=== PATIENT | female | born 1970 ===

== ENCOUNTER 2022-06-29 08:35 | Outpatient (REF) | payer OTHER, SELFPAY ==
[2022-06-29 11:12] LABS: MANUAL DIFF FLAG NO
[2022-06-29 11:31] LABS: Basophils Percent Auto 0.5 % (0-2); Eosinophils Absolute Auto 0.1 X10*3/uL (0.0-0.4); Eosinophils Percent Auto 2.4 % (0-4); Hematocrit 42.7 % (37.0-47.0); Hemoglobin 14.1 g/dl (12.0-16.0); Imm Gran Abs Auto 0.01 X10*3/uL (0.00-0.03); Imm Gran Pct Auto 0.2 % (0.0-0.4); Lymphocytes Absolute Auto 2.4 X10*3/uL (1.2-4.9); Lymphocytes Percent Auto 43.6 % (20-40); Mean Corpuscular Hemoglobin 29.9 pg (27.0-33.0); Mean Corpuscular Volume 90.5 fL (80.0-98.0); Mean Platelet Volume 8.9 fL (9.4-12.3); Monocytes Absolute Auto 0.4 X10*3/uL (0.1-1.2); Monocytes Percent Auto 7.1 % (2-11); Neutrophils Absolute Auto 2.5 x10*3/uL (2.0-8.3); Neutrophils Percent Auto 46.2 % (45-73); Platelet Count 335 X10*3/uL (160-400); Red Blood Count 4.72 X10*6/uL (4.20-5.50); White Blood Count 5.5 X10*3/uL (4.8-10.8)
[2022-06-29 12:45] LABS: Alanine Aminotransferase 19 U/L (0-31); Albumin Level 4.6 g/dL (3.5-5.0); Alkaline Phosphatase 72 U/L (39-117); Anion Gap 10 (12-20); Aspartate Amino Transferase 20 U/L (5-31); Bilirubin Total 1.2 mg/dL (0.0-1.0); Blood Urea Nitrogen 13 mg/dL (9-16); Calcium 10.3 mg/dL (8.4-10.2); Carbon Dioxide 30 mmol/L (22-29); Chloride 104 mmol/L (96-108); Estimated Glomerular Filt Rate > 60; Glucose Random 94 mg/dL (60-115); Potassium 4.2 mmol/L (3.3-5.1); Sodium 140 mmol/L (135-145); Total Protein 7.3 g/dL (6.5-8.0)
[2022-06-29 12:49] LABS: TSH reflex Free T4 0.69 uIU/mL (0.32-4.0)
== END 2022-06-29 08:36 | disposition home or self-care (01) ==
LOC: HO.HMGCLDS 08:35
PROVIDERS: Visit Provider Internal Medicine
DX: I10 Essential (primary) hypertension (principal)
CPT/HCPCS: 36415; 80053; 84443; 85025

== ENCOUNTER 2023-07-02 11:00 | Outpatient (AMB) | payer OTHER, SELFPAY ==
--- NOTE | 2023-07-02 11:05 | MHC.OFFVIS ---
Intake Visit Reasons: proteinuria and R39. 8 Intake Note: New patient is present for Proteinuria/Frequency Antibiotic Allergies:None PVR: 0ML Patient states she experiences alot of frequency. She gets up three time during the night to urinate Allergies No Known Allergies Allergy (Verified 07/02/23 11:06) HPI Comments Details: Jeff is a 53-year-old female who is referred due to proteinuria and microscopic hematuria. History of nicotine dependence. History of hypertension on hydrochlorothiazide. The patient complains of urinary urgency with associated urinary incontinence. She states she has had UTIs in the past but nothing recently. Denies dysuria or gross hematuria. Microscopic hematuria. Discussed reasons for blood in the urine may include but are not limited to kidney stones, cancer in the urinary tract, BPH, kidney stone disease or inflammatory conditions of the urinary tract. I have discussed workup to include cystoscopy evaluation. The patient had a CT scan done ordered by her primary I will have the results faxed to our office. 07/02/2023--trial of Detrol LA 4 mg daily. Discussed side effects of dry mouth. The patient states she already has symptoms of dry mouth and will call if the medication causes worsening, bothersome symptoms. Follow-up office cystoscopy. Obtain CT abdomen and pelvis report. [facility] Medical History UTI (urinary tract infection) Fatigue Weight gain HTN (hypertension) Constipation Lumbar pain Left sided abdominal pain Depression Chronic back pain Surgical History History of surgery on lower extremity Family History Sister Melanoma Maternal Grandfather Colon cancer Family/Other Hodgkin lymphoma Social History Patient Tobacco Use Status: Current someday Tobacco user Review of Systems Const All systems reviewed & are unremarkable except as noted in HPI and below Reports no additional complaints Eyes Reports no additional complaints ENT Reports no additional complaints Card Reports no additional complaints Resp Reports no additional complaints GI Reports no additional complaints Reports as per HPI Musc Reports no additional complaints Skin/Breast Reports system reviewed and no additional complaints, except as documented Neuro Reports no additional complaints Psych Reports no additional complaints Endo Reports no additional complaints Pratik/Lymph Reports no additional complaints Aller/Immun Reports no additional complaints Physical Exam Const General: cooperative, healthy appearing and no acute distress Orientation/consciousness: patient oriented x3 HEENT Head: Yes normal to inspection, Yes normocephalic and Yes atraumatic Eyes Conjunctivae: conjunctivae normal Neck Neck: Yes normal visual inspection and Yes trachea midline Chest Chest palpation & inspection: normal inspection of the chest Resp Effort & Inspection: normal respiratory effort Cardio Jugular venous distension: no JVD GI Inspection: Yes normal to inspection Skin General skin exam: no rashes or lesions noted Neuro General: patient oriented x3 Extrem General: No edema Psych Appearance: grossly normal Office Procedures Post Void Residual Post Residual Void Post Void Residual (PVR): 0 20695-[id number] Void Residual by ultrasound Results AMB Urinalysis, Automated UA Leukoctes 125 Jorge/uL Last Edit by DIONISIO Leigh on 07/02/23 11:13 UA Nitrite Negative Last Edit by DIONISIO Leigh on 07/02/23 11:13 UA Urobilinogen 0.2 mg/dL Last Edit by Jessica Callahan Kenn on 07/02/23 11:13 UA Protein 15 mg/dL Last Edit by DIONISIO Leigh on 07/02/23 11:13 UA pH 6.5 Last Edit by Jessica Callahan Kenn on 07/02/23 11:13 UA Blood 10 [place]/uL Last Edit by Jessica Callahan [facility] on 07/02/23 11:13 UA Specific [place] 1.015 Last Edit by DIONISIO Leigh on 07/02/23 11:13 UA Ketone Negative Last Edit by Jessica Callahan Kenn on 07/02/23 11:13 UA Bilirubin 0 mg/dL Last Edit by DIONISIO Leigh on 07/02/23 11:13 UA Glucose 0 mg/dL Last Edit by DIONISIO Leigh on 07/02/23 11:13 Results Reviewed Results Reviewed: Laboratory Last Values Urine pH (Auto) 6.5 07/02/23 11:04 Specific [place] (Auto) 1.015 07/02/23 11:04 Urine Protein (Auto) 15 mg/dL 07/02/23 11:04 Glucose (UA)(Auto) 0 mg/dL 07/02/23 11:04 Urine Ketones (Auto) Negative 07/02/23 11:04 Urine Blood (Auto) 10 [place]/uL 07/02/23 11:04 Urine Nitrite (Auto) Negative 07/02/23 11:04 Urine Bilirubin (Auto) 0 mg/dL 07/02/23 11:04 Urine Urobilinogen (Auto) 0.2 mg/dL 07/02/23 11:04 Leukocyte Esterase (Auto) 125 Jorge/uL 07/02/23 11:04 Assessment & Plan Assessment & Plan (1) Proteinuria: Code(s): R80.9 - Proteinuria, unspecified Category: Medical (2) Microscopic hematuria: Code(s): R31.29 - Other microscopic hematuria Category: Medical (3) OAB (overactive bladder): Code(s): N32.81 - Overactive bladder Category: Medical (4) Urge incontinence of urine: Code(s): N39.41 - Urge incontinence Category: Medical (5) History of nicotine use: Code(s): Z87.891 - Personal history of nicotine dependence Category: Medical Plan Detrol LA 4 mg daily. Discussed side effects of dry mouth. The patient states she already has symptoms of dry mouth and will call if the medication causes worsening, bothersome symptoms. Follow-up office cystoscopy. Obtain CT abdomen and pelvis report. Orders: Orders AMB Urinalysis Automated Today Ric Stone MD Z13.9 - Encounter for screening, unspecified AMB Post Void Residual by ultrasound Today Neela Eng MD R35.0 - Frequency of micturition Medications: New tolterodine ER 4 mg PO DAILY 30 caps 1RF Neela Eng MD Patient Instructions: The patient had an opportunity to ask questions regarding treatment plan. The patient expressed understanding and agreement with the above treatment plan. The patient is aware they should contact our office by phone for worsening of their current condition or the appearance of new symptoms. Compliance is encouraged with any medications and followup testing that is ordered. It is a privilege to be allowed the opportunity to participate in the urologic care of your patient. If you have any questions or concerns regarding treatment for the above conditions please do not hesitate to contact me. The office telephone contact is [phone]. This note is constructed in part using voice recognition software. While every effort has been made to ensure accuracy precision lens grinder apprentice errors may have been included. Yours sincerely, Neela Eng MD Coding Level of Care Code New Pt Level 4 (26297) Diagnoses Proteinuria R80.9 Microscopic hematuria R31.29 OAB (overactive bladder) N32.81 Urge incontinence of urine N39.41 History of nicotine use Z87.891 CPT Codes Post Residual Void - PVR CPT Code: 76184-Wwzs Void Residual by ultrasound ([id number])
== END 2023-07-02 11:41 | disposition home or self-care (01) ==
PROVIDERS: PCP Physician Assistant Medical; Visit Provider Urology
DX: R80.9 Proteinuria, unspecified (principal); R31.29 Other microscopic hematuria; N32.81 Overactive bladder; N39.41 Urge incontinence; Z87.891 Personal history of nicotine dependence; Z13.9 Encounter for screening, unspecified
CPT/HCPCS: 99204

== ENCOUNTER → 2023-07-02 11:00 | Outpatient (BNVA) | payer OTHER, SELFPAY | PROVIDERS: PCP Physician Assistant Medical; Visit Provider Urology | DX: R31.29 Other microscopic hematuria (principal); N32.81 Overactive bladder; N39.41 Urge incontinence; R80.9 Proteinuria, unspecified; R35.0 Frequency of micturition; Z87.891 Personal history of nicotine dependence | CPT/HCPCS: 51798; 81003 ==

== ENCOUNTER 2023-08-16 13:26 | Outpatient (AMB) | payer OTHER, SELFPAY ==
--- NOTE | 2023-08-16 13:41 | A.OFFVIS_ITS ---
Intake Visit Reasons: cysto Intake Note: Patient presents today for a CYSTOSCOPY Procedure: Meds: Tolterodine Allergies to Antibiotic: No Known Allergies Blood Thinner: None Disposable Uro-G HD Cystoscope Cannula: Lot: [id number] Exp: 02/27/2026 Allergies No Known Allergies Allergy (Verified 07/02/23 11:06) Medication List - Last Reconciled 08/16/23 by Neela Eng MD hydrochlorothiazide 12.5 mg PO QAM HPI Comments Details: 08/16/2023--there for office cystoscopy. Cystoscopy findings: Mild bladder wall thickening, no suspicious bladder lesions visualized. She did not get the prescription Detrol for lower urinary tract symptoms of frequency urgency. She states she does not insurance for the medications. She states even with a [employer] coupon it was too expensive. I have discussed behavioral modification, timed voiding. Will refer to Nephrology for proteinuria. Review of chart: 07/02/23--Jeff is a 53-year-old female who is referred due to proteinuria and microscopic hematuria. History of nicotine dependence. History of hypertension on hydrochlorothiazide. The patient complains of urinary urgency with associated urinary incontinence. She states she has had UTIs in the past but nothing recently. Denies dysuria or gross hematuria. Microscopic hematuria. Discussed reasons for blood in the urine may include but are not limited to kidney stones, cancer in the urinary tract, BPH, kidney stone disease or inflammatory conditions of the urinary tract. I have discussed workup to include cystoscopy evaluation. The patient had a CT scan done ordered by her primary I will have the results faxed to our office. --trial of Detrol LA 4 mg daily. Discussed side effects of dry mouth. The patient states she already has symptoms of dry mouth and will call if the medication causes worsening, bothersome symptoms. Follow-up office cystoscopy. Obtain CT abdomen and pelvis report. [facility] Medical History UTI (urinary tract infection) Fatigue Weight gain HTN (hypertension) Constipation Lumbar pain Left sided abdominal pain Depression Chronic back pain Surgical History History of surgery on lower extremity Family History Sister Melanoma Maternal Grandfather Colon cancer Family/Other Hodgkin lymphoma Social History Patient Tobacco Use Status: Current someday Tobacco user Review of Systems Const All systems reviewed & are unremarkable except as noted in HPI and below Reports no additional complaints Eyes Reports no additional complaints ENT Reports no additional complaints Card Reports no additional complaints Resp Reports no additional complaints GI Reports no additional complaints Reports as per HPI Musc Reports no additional complaints Skin/Breast Reports system reviewed and no additional complaints, except as documented Neuro Reports no additional complaints Psych Reports no additional complaints Endo Reports no additional complaints Pratik/Lymph Reports no additional complaints Aller/Immun Reports no additional complaints Office Procedures Cystoscopy Consent Discussed risk and benefit or proposed procedure with the patient. Information consent for procedure given to the patient. Discussed technical aspects, risks, benefits and alternatives in full. Addressed all of the patient's questions and concerns regarding the procedure. The patient demonstrated knowledge and understanding. They wish to proceed with this procedure. Preparation The patient was prepped in the usual manner. A library customer service clerk was present and in the room. Genitalia was prepped with betadine solution in a sterile manner. Lidocaine Jelly 2% was placed into the urethra and 16Fr flexible Olympus cystoscope was inserted into the meatus after adequate lubrication. Procedure Time out per protocol performed. Bladder Inspection Bladder Inspection: The bladder was inspected in its entirety with utilization retroflexion displaying: Tumor(s): no suspicious bladder lesions visualized Trabeculation: present - Mild Mucosal Erthema: NA Orifices: normal shape and position Urethra: normal Cystoscopy findings: Mild bladder wall thickening, no suspicious bladder lesions visualized [id number] DISPOSABLE SCOPE URO-G FLEXIBLE SCOPE Procedure code (CPT) selection complete Office Meds lidocaine HCl 2 % mucosal jelly in applicator Performing Provider: Neela Eng MD [facility] Administered by: Amaury Ornelas RN on 08/16/23 13:55 Dose Route Admin Location Dispensed Lot Number Expiration Date NDC Log Grader 10 mL intra-urethral 10 mL naproxen 500 mg tablet Performing Provider: Neela Eng MD Per[facility] Administered by: Amaury Ornelas RN on 08/16/23 13:55 2 Dose Route Admin Location Dispensed Lot Number Expiration Date NDC Log Grader 500 mg PO 1 tab ciprofloxacin HCl 500 mg tablet Performing Provider: Neela Eng MD Per[facility] Administered by: Amaury Ornelas RN on 08/16/23 13:55 Dose Route Admin Location Dispensed Lot Number Expiration Date NDC Log Grader 500 mg PO 1 tab Results AMB Urinalysis, Automated UA Leukoctes 125 Jorge/uL Last Edit by DIONISIO Goncalves on 08/16/23 13:50 2+ Sha Curran 08/16/23 13:50 UA Nitrite Negative Last Edit by Sha Curran Kenn on 08/16/23 13:50 UA Urobilinogen 0.2 mg/dL Last Edit by Sha Curran [facility] on 08/16/23 13:5 0 UA Protein 15 mg/dL Last Edit by DIONISIO Goncalves on 08/16/23 13:50 UA pH 5.5 Last Edit by Sha Curran [facility] on 08/16/23 13:50 UA Blood 25 [place]/uL Last Edit by Sha Curran [facility] on 08/16/23 13:50 1+ Sha Curran 08/16/23 13:50 UA Specific [place] 1.015 Last Edit by Sha Curran Kenn on 08/16/23 13: 50 UA Ketone Negative Last Edit by DIONISIO Goncalves on 08/16/23 13:50 UA Bilirubin 0 mg/dL Last Edit by DIONISIO Goncalves on 08/16/23 13:50 UA Glucose 0 mg/dL Last Edit by Sha Curran [facility] on 08/16/23 13:50 Results Reviewed Results Reviewed: Laboratory Last Values Urine pH (Auto) 5.5 08/16/23 13:44 Specific [place] (Auto) 1.015 08/16/23 13:44 Urine Protein (Auto) 15 mg/dL 08/16/23 13:44 Glucose (UA)(Auto) 0 mg/dL 08/16/23 13:44 Urine Ketones (Auto) Negative 08/16/23 13:44 Urine Blood (Auto) 25 [place]/uL 08/16/23 13:44 Urine Nitrite (Auto) Negative 08/16/23 13:44 Urine Bilirubin (Auto) 0 mg/dL 08/16/23 13:44 Urine Urobilinogen (Auto) 0.2 mg/dL 08/16/23 13:44 Leukocyte Esterase (Auto) 125 Jorge/uL 08/16/23 13:44 Reviewed--report: CT abdomen and pelvis without contrast done at [facility] on 05/02/2023--kidneys no hydronephrosis, renal masses or renal calculi Assessment & Plan Assessment & Plan (1) Microscopic hematuria: Code(s): R31.29 - Other microscopic hematuria Category: Medical (2) OAB (overactive bladder): Code(s): N32.81 - Overactive bladder Category: Medical (3) Urge incontinence of urine: Code(s): N39.41 - Urge incontinence Category: Medical (4) History of nicotine use: Code(s): Z87.891 - Personal history of nicotine dependence Category: Medical (5) Proteinuria: Code(s): R80.9 - Proteinuria, unspecified Category: Medical Plan Referred to nephrology Follow-up with Urology p.r.n. Orders: Orders AMB Cystoscopy Today N32.81 - Overactive bladder, N39.41 - Urge incontinence, R31.29 - Other microscopic hematuria, R80.9 - Proteinuria, unspecified, Z87.891 - Personal history of nicotine dependence AMB Urinalysis Automated Today Z13.9 - Encounter for screening, unspecified Referrals Nephrology Referral R80.9 - Proteinuria, unspecified Medications: Discontinued tolterodine ER Discontinued Reason: Patient no longer taking 4 mg PO DAILY 30 caps 1RF Patient Instructions: The patient had an opportunity to ask questions regarding treatment plan. The patient expressed understanding and agreement with the above treatment plan. The patient is aware they should contact our office by phone for worsening of their current condition or the appearance of new symptoms. Compliance is encouraged with any medications and followup testing that is ordered. It is a privilege to be allowed the opportunity to participate in the urologic care of your patient. If you have any questions or concerns regarding treatment for the above conditions please do not hesitate to contact me. The office telephone contact is [phone]. This note is constructed in part using voice recognition software. While every effort has been made to ensure accuracy apprise counselor errors may have been included. Yours sincerely, Neela Eng MD Coding Level of Care Code Est Pt Level 3 (29581) Diagnoses Microscopic hematuria R31.29 OAB (overactive bladder) N32.81 Urge incontinence of urine N39.41 History of nicotine use Z87.891 Proteinuria R80.9 CPT Codes Cystoscopy - CPT: 09188-[id number] ([id number])
== END 2023-08-16 14:40 | disposition home or self-care (01) ==
PROVIDERS: PCP Physician Assistant Medical; Visit Provider Urology
DX: R31.29 Other microscopic hematuria (principal); R80.9 Proteinuria, unspecified; N32.81 Overactive bladder; N39.41 Urge incontinence; Z87.891 Personal history of nicotine dependence; Z13.9 Encounter for screening, unspecified
CPT/HCPCS: 52000

== ENCOUNTER → 2023-08-16 13:26 | Outpatient (BNVA) | payer OTHER, SELFPAY | PROVIDERS: PCP Physician Assistant Medical; Visit Provider Urology | DX: R31.29 Other microscopic hematuria (principal); N32.81 Overactive bladder; N39.41 Urge incontinence; R80.9 Proteinuria, unspecified; Z87.891 Personal history of nicotine dependence | CPT/HCPCS: 52000; 81003 ==

== ENCOUNTER 2023-09-21 12:19 | Emergency (ER) | payer OTHER, SELFPAY ==
--- NOTE | 2023-09-21 | ECG_ITS ---
Test Reason : DIZZINESS Blood Pressure : / mmHG Vent. Rate : 082 BPM Atrial Rate : 082 BPM P-R Int : 142 ms QRS Dur : 104 ms QT Int : 390 ms P-R-T Axes : 058 063 072 degrees QTc Int : 456 ms Normal sinus rhythm Normal ECG No previous ECGs available Referred By: Nitin Mosley Electronically Signed By:AGUEDA RITTER
[2023-09-21 12:23] VITALS: BP 112/80; BP 159/87; PULSE 86; PULSE 90; RESP 18; TEMP 36.5; O2SAT 95; O2SAT 99; BMI 29.3
[2023-09-21 12:46] LABS: MANUAL DIFF FLAG NO
[2023-09-21 12:47] LABS: Basophils Percent Auto 0.4 % (0-2); Eosinophils Absolute Auto 0.1 X10*3/uL (0.0-0.4); Eosinophils Percent Auto 0.7 % (0-4); Hematocrit 42.7 % (37.0-47.0); Hemoglobin 15.1 g/dl (12.0-16.0); Imm Gran Abs Auto 0.01 X10*3/uL (0.00-0.03); Imm Gran Pct Auto 0.1 % (0.0-0.4); Lymphocytes Absolute Auto 2.6 X10*3/uL (1.2-4.9); Lymphocytes Percent Auto 34.6 % (20-40); Mean Corpuscular HGB Conc 35.4 g/dl (31.0-35.0); Mean Corpuscular Hemoglobin 30.8 pg (27.0-33.0); Mean Corpuscular Volume 87.1 fL (80.0-98.0); Mean Platelet Volume 8.6 fL (9.4-12.3); Monocytes Absolute Auto 0.4 X10*3/uL (0.1-1.2); Monocytes Percent Auto 4.8 % (2-11); Neutrophils Absolute Auto 4.4 x10*3/uL (2.0-8.3); Neutrophils Percent Auto 59.4 % (45-73); Platelet Count 346 X10*3/uL (160-400); Red Cell Distribution Width 13.1 % (11.0-16.0); White Blood Count 7.5 X10*3/uL (4.8-10.8)
[2023-09-21 12:51] LABS: Appearance Urine Clear; Color Urine Yellow; Glucose Urine UA Negative (Negative); Leukocyte Esterase Urine Negative (Negative); Nitrite Urine Negative (Negative); PH 8.5 (5.0-9.0); Specific Gravity - Urine <= 1.005 (1.005-1.025); Urine Blood Negative (Negative); Urine Ketones Negative (Negative); Urine Protein Negative (Neg-Trace)
[2023-09-21 12:56] LABS: Bacteria Urine None Seen (None Seen); Hyaline Casts Urine 0-2 /LPF (0-2); RBC Urine 0-2 /HPF (0-2); Squamous Epithelial Cell Urine 0-2 /HPF (0-2); WBC Urine 0-5 /HPF (0-5)
--- NOTE | 2023-09-21 12:57 | ED.GENADULT ---
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 She reports chronic intermittent fluctuating laterality paresthesias she has been evaluated for this in the past including a trip to [facility] ED she tells me she got an MRI that time this was fairly recently and the symptoms at the time or paresthesias heavy sensation of the right arm she reports to me brain MRI that was normal other than ?atrophy ?. Today she tells me she was feeling generalized malaise unwell fatigued prior to driving actually to a urology appointment here on campus. About assisted through the drive she felt very fatigued as if she would fall asleep and profound generalized weakness in all the extremities with no lateral predominance. She denied any difficulty speaking she pull off the side of the road. She did not syncopized she denies any convulsive activity urinary incontinence history of seizure. She had a small peanut butter sandwich prior to this episode. No associated chest pain. Related Data Previous Rx's ?Medication ?Instructions ?Recorded hydrochlorothiazide 12.5 mg tablet 12.5 mg PO QAM #30 tabs 06/29/22 amlodipine 5 mg tablet 5 mg PO DAILY 7 days #7 tabs 09/21/23 potassium chloride 10 mEq 10 meq PO BID 5 days #10 caps 09/21/23 capsule,extended release Allergies Allergy/AdvReac Type Severity Reaction Status Date / Time No Known Allergies Allergy Verified 09/21/23 12:25 [facility] Past Medical History Medical History UTI (urinary tract infection) Fatigue Weight gain HTN (hypertension) Constipation Lumbar pain Left sided abdominal pain Depression Chronic back pain Surgical History History of surgery on lower extremity Family History Family History Sister Melanoma Maternal Grandfather Colon cancer Family/Other Hodgkin lymphoma Social History Social History Alcohol intake: current Alcohol intake frequency: holidays/special occasions only Patient Tobacco Use Status: Current someday Tobacco user Smoked in Last 30 Days: No Use of substances other than those prescribed or required for medical reasons: No Advance Directives: No Advance Directives Information Provided: Yes Do you have a plan to hurt others: No Plan Patient : No Physical Exam ED Vital Signs: Vital Signs - 24 hr 09/21/23 12:23 09/21/23 14:15 09/21/23 14:18 Temperature 97.7 F 97.9 F 97.9 F Pulse Rate 86 69 69 Respiratory Rate 18 16 16 Blood Pressure 159/87 H 124/83 124/83 Pulse Oximetry 95 97 97 Oxygen Delivery Method Room Air Room Air Room Air BMI result Body Mass Index 29.3 Const Other: GENERAL: Well appearing. No apparent distress. Alert. HEAD/NECK: Normal to inspection. Neck supple. No cervical lymphadenopathy. EYES: Normal to inspection. Sclera non-icteric. ENMT: External nose normal. RESPIRATORY: Respiratory effort normal. Lungs clear to auscultation bilaterally. CARDIOVASCULAR: Regular rate. Normal rhythm. No murmur. No rubs. GI: Soft, non-tender, non-distended. No rebound or guarding. No masses palpable. No hepatosplenomegaly. SKIN: No jaundice. NEUROLOGICAL: Alert. PSYCHIATRIC: Alert. Appearance appropriate for situation. Attitude cooperative. OTHER: Comprehensive Neuro exam: Face symmetric, tongue midline, strong symmetric eye closure, pupils symmetric and reactive to light, intact sensation to the face throughout, intact strong face deviation and shoulder shrug. Sensation intact to light touch throughout 5 out of 5 strength in bilateral upper extremities, 5 and 5 strength in lower extremities Medications Administered Discontinued Medications Generic Name Dose Route Start Last Admin Trade Name Freq PRN Reason Stop Dose Admin Potassium Chloride 40 meq 09/21/23 13:13 09/21/23 13:22 Potassium Chloride Er 20 Meq Tab.Er.Prt PO 09/21/23 13:14 40 meq ONCE ONE Administration Medical Decision Making Medical Decision Making [facility] Narrative: [age] female who reports generalized extremity weakness and profound fatigue came on over several hours. No syncope or near-syncope described. Denies headache. She actually looks somewhat depressed with flat affect and in fact her father is hospitalized she reports him to be critically ill at [facility] she appears to be emotionally affected by. She is also quite concerned about a positive CHAVO and appending rheumatologic workup. She does have intermittent quite chronic scattered extremity paresthesias and anesthesias in the past. She reports a negative brain MRI aside from ?atrophy ?fairly recently at [facility] in [place] where she presented for right arm paresthesia. She describes no focal motor deficits today nor any incontinence convulsive activity seizure history. She is on a statin and hydrochlorothiazide for hyperlipidemia and hypertension no medication changes recently. She does report a history of TBI as a very young child with a skull fracture and brief comatose.. She denies chest pain today or recently and no anginal or anginal equivalents over the past months. She has never had any diagnosed with CAD or full syncopal episodes in the past Differential Diagnosis Differential Diagnoses: The differential diagnosis associated with the presentation includes Dehydration, vasovagal, electrolyte abnormality, thyroid disorder, stress/anxiety, Lab Data MDM Lab Attestation statement: I reviewed the patient's lab results. 09/21/23 12:38 09/21/23 12:38 Labs: Lab Results 09/21/23 Range/Units 12:38 WBC 7.5 (4.8-10.8) X10*3/uL RBC 4.90 (4.20-5.50) X10*6/uL Hgb 15.1 (12.0-16.0) g/dl Hct 42.7 (37.0-47.0) % MCV 87.1 (80.0-98.0) fL MCH 30.8 (27.0-33.0) pg MCHC 35.4 H (31.0-35.0) g/dl RDW 13.1 (11.0-16.0) % Plt Count 346 (160-400) X10*3/uL MPV 8.6 L (9.4-12.3) fL Immature Gran % (Auto) 0.1 (0.0-0.4) % Neut % (Auto) 59.4 (45-73) % Lymph % (Auto) 34.6 (20-40) % [place] % (Auto) 4.8 (2-11) % Eos % (Auto) 0.7 (0-4) % Baso % (Auto) 0.4 (0-2) % Lymph # (Auto) 2.6 (1.2-4.9) X10*3/uL [place] # (Auto) 0.4 (0.1-1.2) X10*3/uL Eos # (Auto) 0.1 (0.0-0.4) X10*3/uL Baso # (Auto) 0.0 (0.0-0.2) X10*3/uL Abs Immat Gran (auto) 0.01 (0.00-0.03) X10*3/uL Absolute Neuts (auto) 4.4 (2.0-8.3) x10*3/uL Absolute Nucleated RBC 0.000 (0.0-0.012) X10*3/uL Nucleated RBC % (auto) 0.0 (0.0-0.2) /100WBC Sodium 142 (135-145) mmol/L Potassium 3.2 L (3.3-5.1) mmol/L Chloride 101 (96-108) mmol/L Carbon Dioxide 29 (22-29) mmol/L Anion Gap 15 (12-20) BUN 6 L (9-16) mg/dL Creatinine 0.83 (0.5-1.4) mg/dL Estim Creat Clear Calc 79.8 Estimated GFR > 60 Random Glucose 135 H (60-115) mg/dL Calcium 10.7 H (8.4-10.2) mg/dL Magnesium 1.9 (1.6-2.6) mg/dL Total Bilirubin 1.3 H (0.0-1.0) mg/dL AST 21 (5-31) U/L ALT 21 (0-31) U/L Alkaline Phosphatase 54 (39-117) U/L Total Creatine Kinase 59 (26-140) U/L Troponin I High Sens < 2.7 (<3.5-17.0) ng/L Total Protein 8.1 H (6.5-8.0) g/dL Albumin 4.9 (3.5-5.0) g/dL TSH 0.59 (0.32-4.0) uIU/mL Urine Color Yellow Urine Appearance Clear Urine pH 8.5 (5.0-9.0) Ur Specific [place] <= 1.005 (1.005-1.025) Urine Protein Negative (Neg-Trace) mg/dL Urine Glucose (UA) Negative (Negative) mg/dL Urine Ketones Negative (Negative) mg/dL Urine Blood Negative (Negative) Urine Nitrite Negative (Negative) Ur Leukocyte Esterase Negative (Negative) Urine RBC 0-2 (0-2) /HPF Urine WBC 0-5 (0-5) /HPF Ur Squamous Epith Cells 0-2 (0-2) /HPF Urine Bacteria None Seen (None Seen) Hyaline Casts 0-2 (0-2) /LPF Independent Interpretation I performed an independent interpretation of an: EKG (Sinus rhythm rate 82 QTC 476, IA 142, QRS 104. No ischemic changes) Independent Historian Clinical information obtained from an independent historian. History obtained from or confirmed by: Spouse Discharge Plan Discharge Clinical Impression: Acute hypokalemia Patient Disposition: Home, Self-Care Instructions: Potassium Content of Foods List (ED), Hypokalemia (ED) Additional Instructions: DISCHARGE DIAGNOSES: Hypokalemia, which means low potassium in the blood HISTORY OF PRESENTATION: ?Generalized weakness fatigue EMERGENCY DEPARTMENT COURSE,TESTS, TREATMENTS: While in the ED today he had blood work and were monitored. Your EKG was normal. Your neurologic and cardiovascular exam was normal. Your potassium and your serum was 3.2 which is low. We have repleted this somewhat orally but we recommend you stop your hydrochlorothiazide which can lower your potassium level. Call your primary doctor to see if they want to get you started on another blood pressure medicine DISCHARGE MEDICATIONS: ?We have prescribed 5 days of oral potassium which she should take as prescribed. After this you will have to have ear blood work repeated by her primary doctor FOLLOW-UP: ?Call your primary or general physician soon as possible to discuss your symptoms, your ED visit and to discuss follow up plans Call your primary doctor 1st thing Sunday morning to schedule follow-up would like him to have your blood work repeated Sunday or Sunday to check for potassium level INSTRUCTIONS ?& RETURN PRECAUTIONS: If any symptoms change first call your primary physician, if it is after-hours your primary doctors office should have a provider president/gm production & live experiences you can speak with. If the symptoms are severe or very concerning to you then call 911 or return to the ED. Nitin Mosley MD Emergency Physician [facility] Prescriptions: New potassium chloride 10 mEq capsule, extended release 10 meq PO BID 5 Days Qty: 10 0RF amlodipine 5 mg tablet 5 mg PO DAILY 7 Days Qty: 7 0RF No Action hydrochlorothiazide 12.5 mg tablet 12.5 mg PO QAM Qty: 30 0RF Interventions: ED Discharge Assessment Last Done: 09/21/23 14:18 Discharge Date/Time: 09/21/23 14:20 Print Language: Spanish
--- NOTE | 2023-09-21 13:00 | PC.NURSE ---
pt passed nursing swallow evaluation w/o difficulty.
[2023-09-21 13:01] LABS: Alanine Aminotransferase 21 U/L (0-31); Albumin Level 4.9 g/dL (3.5-5.0); Alkaline Phosphatase 54 U/L (39-117); Anion Gap 15 (12-20); Aspartate Amino Transferase 21 U/L (5-31); Bilirubin Total 1.3 mg/dL (0.0-1.0); Blood Urea Nitrogen 6 mg/dL (9-16); Calcium 10.7 mg/dL (8.4-10.2); Carbon Dioxide 29 mmol/L (22-29); Chloride 101 mmol/L (96-108); Creatinine Clr Calc Pharmacy 79.8; Estimated Glomerular Filt Rate > 60; Glucose Random 135 mg/dL (60-115); Potassium 3.2 mmol/L (3.3-5.1); Sodium 142 mmol/L (135-145); Total Protein 8.1 g/dL (6.5-8.0)
[2023-09-21 13:13] LABS: Troponin-I High Sensitivity < 2.7 ng/L (<3.5-17.0)
[2023-09-21] MEDS: Potassium Chloride ER 20 MEQ TAB.ER.PRT 40 MEQ PO (13:22)
--- NOTE | 2023-09-21 13:23 | PC.NURSE ---
medication administered per provider order.
[2023-09-21 13:35] LABS: Magnesium 1.9 mg/dL (1.6-2.6)
[2023-09-21 13:49] LABS: Thyroid Stimulating Hormone 0.59 uIU/mL (0.32-4.0)
[2023-09-21 14:15] VITALS: BP 124/83; PULSE 69; RESP 16; TEMP 36.6; O2SAT 97
[2023-09-21 14:18] VITALS: BP 124/83; PULSE 69; RESP 16; TEMP 36.6; O2SAT 97
== END 2023-09-21 14:20 | disposition home or self-care (01) ==
PROVIDERS: Emergency Provider Emergency Medicine; PCP Internal Medicine
DX: E87.6 Hypokalemia (principal); R53.1 Weakness; I10 Essential (primary) hypertension; E78.5 Hyperlipidemia, unspecified; F17.210 Nicotine dependence, cigarettes, uncomplicated; Z87.820 Personal history of traumatic brain injury; Z79.899 Other long term (current) drug therapy; Z79.02 Long term (current) use of antithrombotics/antiplatelets
CPT/HCPCS: 36415; 80053; 81001; 82550; 83735; 84443; 84484; 85025; 93005; 99283; 99285

== ENCOUNTER → 2023-09-21 12:33 | Outpatient (BNV) | payer OTHER, SELFPAY | PROVIDERS: Emergency Provider Emergency Medicine; PCP Internal Medicine; Visit Provider Internal Medicine | DX: R42 Dizziness and giddiness (principal) | CPT/HCPCS: 93010 ==

== ENCOUNTER 2023-10-11 10:51 | Emergency (ER) | payer OTHER, SELFPAY ==
--- NOTE | ~2023-10-11 | XR_ITS ---
EXAMINATION: XR CHEST CLINICAL INFORMATION: Cough. COMPARISON: None available. TECHNIQUE: 2 views of the chest were obtained. FINDINGS: The lungs are well expanded. No focal consolidation. No pleural effusion. Cardiac silhouette is within normal limits. XR/XR chest 2V IMPRESSION: No acute abnormality.
[2023-10-11 10:55] VITALS: BP 132/78; BP 145/85; PULSE 72; PULSE 78; RESP 18; TEMP 37.1; O2SAT 98; BMI 28.5
--- NOTE | 2023-10-11 11:35 | ECG_ITS ---
Test Reason : htn Blood Pressure : / mmHG Vent. Rate : 073 BPM Atrial Rate : 073 BPM P-R Int : 138 ms QRS Dur : 106 ms QT Int : 420 ms P-R-T Axes : 068 086 074 degrees QTc Int : 462 ms Normal sinus rhythm Normal ECG When compared with ECG of 21-SEP-2023 12:33, No significant change was found Referred By: Angela Castaneda Electronically Signed By:PRADIP PARRA
[2023-10-11 11:38] VITALS: BP 147/85; PULSE 74
[2023-10-11 11:40] VITALS: BP 150/89; PULSE 75
[2023-10-11 11:41] VITALS: BP 156/91; PULSE 78
[2023-10-11 11:59] LABS: MANUAL DIFF FLAG NO
[2023-10-11 12:05] LABS: Appearance Urine Clear; Color Urine Yellow; Glucose Urine UA Negative (Negative); Leukocyte Esterase Urine Moderate (2+) (Negative); Nitrite Urine Negative (Negative); UMIC TRIGGER UACC YES; Urine Blood Negative (Negative); Urine Ketones 15 mg/dL (Negative); Urine Protein Negative (Neg-Trace)
[2023-10-11 12:06] LABS: Basophils Percent Auto 0.4 % (0-2); Eosinophils Absolute Auto 0.1 X10*3/uL (0.0-0.4); Eosinophils Percent Auto 1.3 % (0-4); Hematocrit 41.1 % (37.0-47.0); Hemoglobin 14.2 g/dl (12.0-16.0); Imm Gran Abs Auto 0.01 X10*3/uL (0.00-0.03); Imm Gran Pct Auto 0.2 % (0.0-0.4); Lymphocytes Absolute Auto 1.9 X10*3/uL (1.2-4.9); Lymphocytes Percent Auto 33.8 % (20-40); Mean Corpuscular HGB Conc 34.5 g/dl (31.0-35.0); Mean Corpuscular Hemoglobin 30.4 pg (27.0-33.0); Mean Platelet Volume 8.5 fL (9.4-12.3); Monocytes Absolute Auto 0.4 X10*3/uL (0.1-1.2); Monocytes Percent Auto 6.9 % (2-11); Neutrophils Absolute Auto 3.2 x10*3/uL (2.0-8.3); Neutrophils Percent Auto 57.4 % (45-73); Platelet Count 295 X10*3/uL (160-400); Red Blood Count 4.67 X10*6/uL (4.20-5.50); Red Cell Distribution Width 13.2 % (11.0-16.0); White Blood Count 5.5 X10*3/uL (4.8-10.8)
--- NOTE | 2023-10-11 12:15 | ED_ITS ---
HPI - Weakness General Chief complaint: Weakness Stated complaint: HIGH BP 142/80,ANXIETY PER EMS Time Seen by Provider: 10/11/23 11:01 Source: patient, EMS, RN notes reviewed and old records reviewed Mode of arrival: EMS History of Present Illness ED Provider: Angela Castaneda PA-C HPI Narrative: 53-year-old female with a past medical history HTN, depression, HLD, presenting to the ED complaining of elevated BP readings at home 160/110, generalized fatigue/weakness and tingling/paresthesias in bilateral upper extremities and feet. Patient was recently seen and treated in our ED on 09/21/2023 for similar symptoms, had negative workup, HCTZ was changed to Amlodipine which patient reports compliance. Also reports cough. Denies fever, chills, cough, chest pain/shortness of breath, abdominal pain, nausea/vomiting, headache Related Data Previous Rx's ?Medication ?Instructions ?Recorded hydrochlorothiazide 12.5 mg tablet 12.5 mg PO QAM #30 tabs 06/29/22 amlodipine 5 mg tablet 5 mg PO DAILY 7 days #7 tabs 09/21/23 potassium chloride 10 mEq 10 meq PO BID 5 days #10 caps 09/21/23 capsule,extended release Allergies Allergy/AdvReac Type Severity Reaction Status Date / Time atorvastatin Allergy Weakness Verified 10/11/23 11:02 Review of Systems 2 Review of Systems: Constitutional: No Fever, No Chills, +fatigue ENT/Mouth: No Ear Pain, No Nasal Congestion, No sore throat, No Rhinorrhea, No Swallowing Difficulty Cardiovascular: No Chest Pain, No SOB Respiratory: + Cough, No Sputum Gastrointestinal: No Nausea, No Vomiting, +intermittent Diarrhea, No Constipation, No Abdominal pain Genitourinary: No Dysuria, No Urinary Frequency, No Hematuria, No Urinary Incontinence/retention, No Flank Pain Musculoskeletal: No joint pain, No Myalgias, No Joint Swelling Skin: No Skin Lesions, No rash Neuro: + Weakness, No Numbness, + Paresthesias Yes all other systems are reviewed and are negative Constitutional: Constitutional: Reports as per HPI Neurologic: Denies Abnormal speech present [facility] Past Medical History Attestation statement: The following information was validated with the patient. Source: old records reviewed Medical History UTI (urinary tract infection) Fatigue Weight gain HTN (hypertension) Constipation Lumbar pain Left sided abdominal pain Depression Chronic back pain Surgical History History of surgery on lower extremity Family History Family History Sister Melanoma Maternal Grandfather Colon cancer Family/Other Hodgkin lymphoma Social History Social History Alcohol intake: current Alcohol intake frequency: holidays/special occasions only Patient Tobacco Use Status: Current someday Tobacco user Advance Directives: Yes Advance Directives Information Provided: No Advance Directives on File: No Do you have a plan to hurt others: No Plan Physical Exam 2 Vital Signs: Vital Signs: Last Vital Signs Temp 98.1 F 10/11/23 14:14 Pulse 75 10/11/23 14:14 Resp 18 10/11/23 14:14 BP 132/83 10/11/23 14:14 Pulse Ox 98 10/11/23 14:14 O2 Del Method Room Air 10/11/23 14:14 BMI result Body Mass Index 28.5 Const: General: cooperative, healthy appearing and no acute distress O rientation/consciousness: patient oriented x3 Limitations: no limitations HEENT: Head: Yes normal to inspection and Yes atraumatic Ears: hearing grossly normal bilaterally General nose exam: Normal external nose present Face and sinus: Yes normal facial exam Eyes: General: appearance normal, both eyes and all related structures EOM: EOMs intact bilaterally Neck: Neck: Yes normal visual inspection and Yes no meningeal signs Resp: Effort & Inspection: normal respiratory effort and no respiratory distress Auscultation: clear to auscultation bilaterally, no crackles and no wheezes Cardio: Rate: regular rate Heart sounds: S1 normal heart sound present and S2 normal heart sound present Peripheral pulses: Peripheral pulses 2+ throughout GI: Inspection: Yes normal to inspection Palpation (GI): Soft to palpation, nontender, no guarding and not rigid : General: Yes no CVA tenderness Back/Spine/Pelvis: Back: no CVA tenderness Skin: Rashes: no rashes Wounds: no wounds Neuro: General: patient oriented x3, tone normal, moves all extremities, no meningeal signs, no focal motor deficits and CN's II-XI intact bilaterally C ranial nerves: Yes CN's II-XII intact bilaterally and Yes Bilaterally intact EOM present Cognition (Neuro): normal cognition Speech: No Abnormal speech present Gait exam (Neuro): Normal gait present Motor exam (neuro): 5/5 motor strength present throughout, Pronator motor function not present and no tremor noted Extrem: General: Yes normal to inspection Course Course Course Narrative: -1227-- labs reassuring, mild elevation in bilirubin -troponin negative. UA without infection. Viral studies negative XR chest 2V IMPRESSION: No acute abnormality. > patient's blood pressures have remained acceptable in the ED, elevated but without need for intervention. patient is safe for discharge home with close PCP follow-up Results discussed with patient including worrisome signs and symptoms and strict return precautions, and when to return to the emergency department. They verbalized understanding and feel safe for discharge at this time. Medical Decision Making Medical Decision Making MDM Narrative: 53-year-old female with a past medical history HTN, depression, HLD, presenting to the ED complaining of elevated BP readings at home, generalized fatigue/weakness and tingling/paresthesias in bilateral upper extremities and feet. On exam mildly hypertensive, NAD, nontoxic appearing, no focal neuro deficits, exam otherwise benign. Concern for hypertension vs anxiety vs metabolic abnormalities 1st viral illness/pneumonia. Low suspicion for ACS, CVA/TIA or dissection or hypertensive urgency/emergency Plan: EKG, labs, CXR, viral testing, re-evaluate Please refer to course for remaining clinical decision making, interpretation of labs/imaging results, and discussions with consultants and/or family members. Differential Diagnosis Differential Diagnoses: The differential diagnosis associated with the presentation includes As above Admission/Observation Consideration of admission/observation: Escalation of care including admission/observation considered Lab Data [facility] Lab Attestation statement: I reviewed the patient's lab results. 10/11/23 11:49 10/11/23 11:49 Labs: Lab Results 10/11/23 Range/Units 11:49 WBC 5.5 (4.8-10.8) X10*3/uL RBC 4.67 (4.20-5.50) X10*6/uL Hgb 14.2 (12.0-16.0) g/dl Hct 41.1 (37.0-47.0) % MCV 88.0 (80.0-98.0) fL MCH 30.4 (27.0-33.0) pg MCHC 34.5 (31.0-35.0) g/dl RDW 13.2 (11.0-16.0) % Plt Count 295 (160-400) X10*3/uL MPV 8.5 L (9.4-12.3) fL Immature Gran % (Auto) 0.2 (0.0-0.4) % Neut % (Auto) 57.4 (45-73) % Lymph % (Auto) 33.8 (20-40) % [place] % (Auto) 6.9 (2-11) % Eos % (Auto) 1.3 (0-4) % Baso % (Auto) 0.4 (0-2) % Lymph # (Auto) 1.9 (1.2-4.9) X10*3/uL [place] # (Auto) 0.4 (0.1-1.2) X10*3/uL Eos # (Auto) 0.1 (0.0-0.4) X10*3/uL Baso # (Auto) 0.0 (0.0-0.2) X10*3/uL Abs Immat Gran (auto) 0.01 (0.00-0.03) X10*3/uL Absolute Neuts (auto) 3.2 (2.0-8.3) x10*3/uL Absolute Nucleated RBC 0.000 (0.0-0.012) X10*3/uL Nucleated RBC % (auto) 0.0 (0.0-0.2) /100WBC Sodium 140 (135-145) mmol/L Potassium 3.8 (3.3-5.1) mmol/L Chloride 105 (96-108) mmol/L Carbon Dioxide 25 (22-29) mmol/L Anion Gap 14 (12-20) BUN 8 L (9-16) mg/dL Creatinine 0.75 (0.5-1.4) mg/dL Estim Creat Clear Calc 87.1 Estimated GFR > 60 Random Glucose 94 (60-115) mg/dL Calcium 10.2 (8.4-10.2) mg/dL Magnesium 1.9 (1.6-2.6) mg/dL Total Bilirubin 1.7 H (0.0-1.0) mg/dL Direct Bilirubin 0.6 H (0.0-0.5) mg/dL AST 16 (5-31) U/L ALT 18 (0-31) U/L Alkaline Phosphatase 39 (39-117) U/L Troponin I High Sens < 2.7 (<3.5-17.0) ng/L Total Protein 7.3 (6.5-8.0) g/dL Albumin 4.6 (3.5-5.0) g/dL Urine Color Yellow Urine Appearance Clear Urine pH 8.0 (5.0-9.0) Ur Specific [place] 1.010 (1.005-1.025) Urine Protein Negative (Neg-Trace) mg/dL Urine Glucose (UA) Negative (Negative) mg/dL Urine Ketones 15 (Negative) mg/dL Urine Blood Negative (Negative) Urine Nitrite Negative (Negative) Ur Leukocyte Esterase Moderate (2+) H (Negative) Urine RBC 0-2 (0-2) /HPF Urine WBC 0-5 (0-5) /HPF Ur Squamous Epith Cells 0-2 (0-2) /HPF Urine Bacteria None Seen (None Seen) Hyaline Casts 0-2 (0-2) /LPF Influenza Type A (PCR) NEGATIVE (Negative) Influenza Type B (PCR) NEGATIVE (Negative) RSV RNA Qual (PCR) NEGATIVE (Negative) SARS-CoV-2 RNA (RT-PCR) NEGATIVE (Negative) Independent Interpretation I performed an independent interpretation of an: EKG and Plain X-Ray Radiology Impression Discussion of test interpretation with radiology: I have reviewed the radiologist's reading. Independent Historian Clinical information obtained from an independent historian. History obtained from or confirmed by: EMS External Record Review External record reviewed: Inpatient record, Office record, Outpatient record, Prior outpatient labs, Prior outpatient radiology, Primary care record and Outside ED record Tests considered The following testing was considered but not selected: As above Prescription Management I considered prescription management with: Other Chronic Conditions Patient?s care impacted by: Hypertension Discharge Plan Discharge Clinical Impression: Hypertension, Paresthesia Patient Disposition: Home, Self-Care Instructions: Paresthesia (ED), Hypertension (ED) Additional Instructions: Your blood work and chest x-ray were reassuring. You tested negative for COVID, flu and RSV This important for you to have close follow-up with her primary care doctor. As well as Neurology as already scheduled If her symptoms persist or worsen, you have constant worsening chest pain, shortness of breath or fever return to the emergency department Prescriptions: No Action potassium chloride 10 mEq capsule, extended release 10 meq PO BID 5 Days Qty: 10 0RF amlodipine 5 mg tablet 5 mg PO DAILY 7 Days Qty: 7 0RF hydrochlorothiazide 12.5 mg tablet 12.5 mg PO QAM Qty: 30 0RF Referrals: [facility] [place] Neuro/Sleep [Provider Group] Elliott Metz MD [Primary Care Provider] - 1 week Interventions: ED Discharge Assessment Last Done: 10/11/23 14:14 Discharge Date/Time: 10/11/23 14:15 Print Language: Sami
[2023-10-11 12:19] LABS: Alanine Aminotransferase 18 U/L (0-31); Albumin Level 4.6 g/dL (3.5-5.0); Alkaline Phosphatase 39 U/L (39-117); Anion Gap 14 (12-20); Aspartate Amino Transferase 16 U/L (5-31); Bilirubin Direct 0.6 mg/dL (0.0-0.5); Bilirubin Total 1.7 mg/dL (0.0-1.0); Blood Urea Nitrogen 8 mg/dL (9-16); Calcium 10.2 mg/dL (8.4-10.2); Carbon Dioxide 25 mmol/L (22-29); Chloride 105 mmol/L (96-108); Creatinine Clr Calc Pharmacy 87.1; Estimated Glomerular Filt Rate > 60; Glucose Random 94 mg/dL (60-115); Magnesium 1.9 mg/dL (1.6-2.6); Potassium 3.8 mmol/L (3.3-5.1); Sodium 140 mmol/L (135-145); Total Protein 7.3 g/dL (6.5-8.0)
[2023-10-11 12:21] VITALS: BP 132/83; PULSE 75; RESP 12; TEMP 36.7; O2SAT 97
[2023-10-11 12:21] LABS: Bacteria Urine None Seen (None Seen); Hyaline Casts Urine 0-2 /LPF (0-2); RBC Urine 0-2 /HPF (0-2); Squamous Epithelial Cell Urine 0-2 /HPF (0-2); WBC Urine 0-5 /HPF (0-5)
[2023-10-11 12:27] LABS: Troponin-I High Sensitivity < 2.7 ng/L (<3.5-17.0)
[2023-10-11 12:46] LABS: Influenza A PCR NEGATIVE (Negative); Influenza B PCR NEGATIVE (Negative); Resp Syncy Virus RNA Qual PCR NEGATIVE (Negative); SARS COV2 PCR INHOUSE NEGATIVE (Negative)
[2023-10-11 14:14] VITALS: BP 132/83; PULSE 75; RESP 18; TEMP 36.7; O2SAT 98
== END 2023-10-11 14:15 | disposition home or self-care (01) ==
PROVIDERS: Physician Assistant; Emergency Provider Emergency Medicine; PCP Internal Medicine
DX: R20.2 Paresthesia of skin (principal); R53.1 Weakness; F41.9 Anxiety disorder, unspecified; R53.83 Other fatigue; R05.9 Cough, unspecified; I10 Essential (primary) hypertension; Z79.899 Other long term (current) drug therapy; Z03.818 Encounter for observation for suspected exposure to other biological agents ruled out
CPT/HCPCS: 0241U; 36415; 71046; 80048; 80076; 81001; 81003; 83735; 84484; 85025; 87086; 93005; 99283; 99284

== ENCOUNTER 2023-10-12 10:16 | Outpatient (AMB) | payer OTHER, SELFPAY ==
[2023-10-12 10:29] VITALS: BP 130/80; PULSE 78; O2SAT 98; BMI 27.8
--- NOTE | 2023-10-12 10:29 | HO.NEPHOV ---
Vital Signs 10/12/23 10:29 Height 5 ft 4 in Weight 162 lb 2 oz BMI 27.8 BP 130/80 Blood Pressure Location Lt brachial Position Sitting Pulse 78 Pulse Source Pulse Oximeter Pulse Oximetry (%) 98 Oxygen Delivery Method Room Air Intake Visit Reasons: Proteinuria/ Conf Fusing Machine Feeder Required: No Accompanied by: Self / Same As Patient Allergies atorvastatin Allergy (Verified 10/12/23 10:32) Weakness HPI Comments Details: I had the pleasure of seeing Jeff in consultation for hypertension,history of microscopic hematuria and proteinuria. 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 She has been taking hydrochlorothiazide before but was discontinued due to side effects including electrolyte abnormalities. She has normal sodium diet. She has not gained excess weight. She does not have any hyperkalemia or hypokalemia. She is not known to have any flushing, orthostatic symptoms or renal dysfunction. She is currently being worked up to rule out autoimmune disease and has seen Rheumatology. She has seen urologist for other complaints and was investigated which included even cystoscopy. She does not have any epistaxis, hemoptysis, microscopic hematuria, pedal edema. She does not take any excessive nonsteroidal anti-inflammatories. She tries to maintain good hydration. She feels very tired. PENDING SALE TO [facility] Medical History UTI (urinary tract infection) Fatigue Weight gain HTN (hypertension) Constipation Lumbar pain Left sided abdominal pain Depression Chronic back pain Surgical History History of surgery on lower extremity Family History Sister Melanoma Maternal Grandfather Colon cancer Family/Other Hodgkin lymphoma Social History Alcohol intake: current Alcohol intake frequency: holidays/special occasions only Patient Tobacco Use Status: Current someday Tobacco user Review of Systems Const All systems reviewed & are unremarkable except as noted in HPI and below Physical Exam Vital Signs: Last Vital Signs Pulse 78 10/12/23 10:29 BP 130/80 10/12/23 10:29 Pulse Ox 98 10/12/23 10:29 Oxygen Delivery Method Room Air 10/12/23 10:29 BMI result Body Mass Index 27.8 Const General: comfortable and no acute distress Orientation/consciousness: patient oriented x3 HEENT Head: Yes normocephalic Mouth: Normal oral and palatal mucosa present Eyes EOM: EOMs intact bilaterally Neck Neck: Yes supple Resp Auscultation: clear to auscultation bilaterally Cardio Jugular venous distension: no JVD Rate: regular rate GI Palpation (GI): Soft to palpation Auscultation: normal bowel sounds General: Yes no CVA tenderness Back/Spine/Pelvis Back: no CVA tenderness Skin General skin exam: no rashes or lesions noted Neuro General: patient oriented x3 and moves all extremities Extrem General: Yes no pedal edema Results Reviewed Nephrology Results: Hgb 14.2 g/dl (12.0-16.0) 10/11/23 WBC 5.5 X10*3/uL (4.8-10.8) 10/11/23 Plt Count 295 X10*3/uL (160-400) 10/11/23 Sodium 140 mmol/L (135-145) 10/11/23 Potassium 3.8 mmol/L (3.3-5.1) 10/11/23 Chloride 105 mmol/L (96-108) 10/11/23 Carbon Dioxide 25 mmol/L (22-29) 10/11/23 BUN 8 mg/dL (9-16) L 10/11/23 Creatinine 0.75 mg/dL (0.5-1.4) 10/11/23 Calcium 10.2 mg/dL (8.4-10.2) 10/11/23 Urine Protein Negative mg/dL (Neg-Trace) 10/12/23 Urine Creatinine 157.43 mg/dL 10/12/23 Protein/Creatinin Ratio 0.06 (<0.2) 10/12/23 Assessment & Plan Assessment & Plan (1) Hypertension, essential: Code(s): I10 - Essential (primary) hypertension Category: Medical (2) Proteinuria: Code(s): R80.9 - Proteinuria, unspecified Category: Medical Qualifiers: Proteinuria type: unspecified Qualified Code(s): R80.9 - Proteinuria, unspecified (3) Microscopic hematuria: Code(s): R31.29 - Other microscopic hematuria Category: Medical Plan Jeff has longstanding hypertension. She was on hydrochlorothiazide which was discontinued and is currently on amlodipine. Her blood pressure is at goal. She should consume low-sodium diet. She should maintain activity along with lifestyle modifications. She can continue current dosage of amlodipine. She does not have any history of hypokalemia or renal dysfunction. She is not known to have any uncontrolled thyroid disorders. She has seen Rheumatology and is being worked up to rule out autoimmune diseases. I have ordered urine studies including urinalysis, urine protein creatinine ratio, 24 hour urine for protein. We may have to switch her amlodipine to ARB if she has proteinuria. She should avoid excessive nonsteroidal anti-inflammatories and should maintain good hydration. I would not make any medication changes today. All these have been explained in detail. Answered all questions. Follow-up appointment given. Orders: Orders UA and rflx microscopic Today I10 - Essential (primary) hypertension, R31.29 - Other microscopic hematuria, R80.9 - Proteinuria, unspecified Protein Creatinine Ratio, Ur Today I10 - Essential (primary) hypertension, R31.29 - Other microscopic hematuria, R80.9 - Proteinuria, unspecified Urine Culture Today I10 - Essential (primary) hypertension, R31.29 - Other microscopic hematuria, R80.9 - Proteinuria, unspecified Protein, 24 Hr Urine Group Today I10 - Essential (primary) hypertension, R31.29 - Other microscopic hematuria, R80.9 - Proteinuria, unspecified Coding Level of Care Code New Pt Level 4 (03266) Diagnoses Hypertension, essential I10 Proteinuria, unspecified type R80.9 Proteinuria type: unspecified Microscopic hematuria R31.29
== END 2023-10-12 11:05 | disposition home or self-care (01) ==
PROVIDERS: PCP Internal Medicine; Visit Provider Internal Medicine Nephrology
DX: I10 Essential (primary) hypertension (principal); R80.9 Proteinuria, unspecified; R31.29 Other microscopic hematuria
CPT/HCPCS: 99204

== ENCOUNTER → 2023-10-12 10:16 | Outpatient (BNVA) | payer OTHER, SELFPAY | PROVIDERS: PCP Internal Medicine; Visit Provider Internal Medicine Nephrology ==

== ENCOUNTER 2023-10-12 11:09 | Outpatient (REF) | payer OTHER, SELFPAY ==
[2023-10-12 13:24] LABS: Appearance Urine Clear; Color Urine Yellow; Glucose Urine UA Negative (Negative); Leukocyte Esterase Urine Trace (Negative); Nitrite Urine Negative (Negative); PH 7.5 (5.0-9.0); Specific Gravity - Urine 1.015 (1.005-1.025); UMIC TRIGGER UA YES; Urine Blood Trace (Negative); Urine Ketones 40 mg/dL (Negative); Urine Protein Negative (Neg-Trace)
[2023-10-12 13:27] LABS: Bacteria Urine None Seen (None Seen); Hyaline Casts Urine 0-2 /LPF (0-2); Squamous Epithelial Cell Urine 0-2 /HPF (0-2); WBC Urine 0-5 /HPF (0-5)
[2023-10-12 14:29] LABS: Creatinine Urine 157.43 mg/dL; Protein/Creatinine Ratio, Ur 0.06 (<0.2); Total Protein Urine Random 10 mg/dL (<12)
== END 2023-10-12 11:10 | disposition home or self-care (01) ==
LOC: HO.10HDLNP 11:09
PROVIDERS: Visit Provider Internal Medicine Nephrology
DX: R31.29 Other microscopic hematuria (principal); R80.9 Proteinuria, unspecified; I10 Essential (primary) hypertension
CPT/HCPCS: 81001; 82570; 84156; 87086

== ENCOUNTER 2023-10-17 09:37 | Emergency (ER) | payer OTHER, SELFPAY ==
--- NOTE | ~2023-10-17 | CT_ITS ---
EXAMINATION: CT ANGIOGRAM HEAD CT ANGIOGRAM NECK CLINICAL INFORMATION: 3 days of left-sided facial numbness/tingling. COMPARISON: CT head from 10/17/2023. TECHNIQUE: Initial noncontrast retail sales merchandiser imaging of the head and neck was performed. Noncontrast head CT was also performed. Test bolus sequences followed by intravenous administration 70 mL of Omnipaque 350. Helical imaging was performed in the axial plane from the aortic arch to the skull vertex. Delayed postcontrast imaging of the head was also performed. The data was processed at the cytotechnologist/cytology supervisor's workstation for generation of MIP sequences. Angled MIPs and volume rendered reformatted images were also generated at an offline 3D workstation. Stenoses are assessed in accordance with NASCET criteria unless otherwise indicated. This CT examination was performed using dose optimization techniques as appropriate, variously including the following: *Automated exposure control. *Adjustment of mA and/or kV according to patient size (this includes techniques or standardized protocols for targeted exams where dose is matched to indication/reason for exam; i.e. extremities or head). *Use of iterative reconstruction technique. DLP: 1461 mGy-cm FINDINGS: CT Head: There is no evidence of acute intracranial hemorrhage or edematous territorial infarction. Pena-white matter differentiation is preserved. A few foci of hypoattenuation in the periventricular and deep white matter are consistent with mild microangiopathy. The ventricles are normal in morphology and size. No evidence for obstructive hydrocephalus. No abnormal mass effect or midline shift. No extra-axial fluid collections. No pathologic intra-axial enhancement or regional oligemia. No acute soft tissue or osseous abnormalities. The mastoid air cells and visualized paranasal sinuses are clear. CT Neck: Mildly heterogeneous, mildly enlarged multinodular thyroid gland. The remaining cervical soft tissues are within normal limits. Mild reversal of the normal cervical lordosis centered at C4-C5. Mild degenerative stepwise anterolisthesis of C2-C4. Advanced degenerative disc disease at C3-C4 and C5-C6. Facet and uncovertebral joint arthropathy leads to osseous encroachment on the neural foramina from C3-C7. CT Upper Chest: The visualized lung apices and upper mediastinum are within normal limits. Neck CTA: Aortic Arch: Normal contour and caliber. Two vessel branching pattern of the arch with left common carotid artery arising from the brachiocephalic trunk. Great Vessel Origins: No significant stenosis of the branch origins. Right Common Carotid Artery: No focal stenosis or occlusion. Cervical Right Internal Carotid Artery: Normal opacification without focal stenosis or occlusion. Left Common Carotid Artery: No focal stenosis or occlusion. Cervical Left Internal Carotid Artery: Normal opacification without focal stenosis or occlusion. Cervical Right Vertebral Artery: Co-dominant. No focal stenosis or occlusion. Cervical Left Vertebral Artery: Codominant. There is a nonobstructive linear defect within the distal V2 and V3 segments of the left vertebral artery. No focal stenosis or occlusion. Brain CTA: Intracranial Internal Carotid Arteries: Mild calcific atherosclerotic disease of the intracranial internal carotid arteries without occlusion or flow-limiting stenosis. Right Anterior Cerebral Artery: Normal A1 segment. Normal opacification of the distal WENDY segments. Left Anterior Cerebral Artery: Normal A1 segment. Normal opacification of the distal WENDY segments. Anterior Communicating Artery: Normal. Right Middle Cerebral Artery: Normal M1 segment of the MCA without focal stenosis or occlusion. Normal arborization of the distal segments. Left Middle Cerebral Artery: Normal M1 segment of the MCA without focal stenosis or occlusion. Normal arborization of the distal segments. Right Vertebral Artery: Normal V4 segment. Normal opacification of the proximal segments of the posterior inferior cerebellar artery. Left Vertebral Artery: Normal V4 segment. Normal opacification of the proximal segments of the posterior inferior cerebellar artery. Basilar Artery: Normal without focal stenosis or occlusion. Normal appearance of the proximal superior cerebellar arteries. Right Posterior Cerebral Artery: Normal P1 segment. Normal opacification of the distal SAFETY PHYSICIAN segments. Left Posterior Cerebral Artery: Normal P1 segment. Normal opacification of the distal SAFETY PHYSICIAN segments. Normal opacification of the superior sagittal, straight, transverse, and sigmoid sinuses. CT/CT angio head neck IMPRESSION: 1. No evidence of acute intracranial hemorrhage or edematous territorial infarction. Mild underlying microangiopathy. 2. CTA of the head and neck without proximal occlusion or flow-limiting stenosis. 3. There is a nonobstructive small linear defect within the distal V2 and V3 segments of the left vertebral artery. This may represent sequela of prior dissection. 4. Moderate multilevel degenerative spondyloarthropathy of the cervical spine. 5. Mildly enlarged multinodular thyroid gland. Recommend further characterization with thyroid ultrasound. Electronically signed by: Terrell Angelo DO 10/17/2023 05:49 PM EDT
--- NOTE | ~2023-10-17 | CT_ITS ---
EXAMINATION: CT HEAD WITHOUT CONTRAST CLINICAL INFORMATION: Left-sided facial numbness COMPARISON: None available. TECHNIQUE: Contiguous axial imaging was performed from the skull base to vertex without intravenous administration of contrast. This CT examination was performed using dose optimization techniques as appropriate, variously including the following: *Automated exposure control *Adjustment of mA and/or kV according to patient size (this includes techniques or standardized protocols for targeted exams where dose is matched to indication/reason for exam; i.e. extremities or head) *Use of iterative reconstruction technique DLP: 585 mGy-cm FINDINGS: Ventricles, sulci and cisterns are prominent for the patient's age. There is no midline shift, no abnormal intra- or extra- axial fluid accumulation. Pena and white matter differentiation is normal. Bone window images show no evidence of skull fracture. CT/CT head/brain wo IV con IMPRESSION: 1. Mild cerebral atrophy for patient's age. 2. No intracranial hemorrhage or skull fracture is seen. 3. No evidence of space occupying lesion could be found. 4. The current plain CT scan of the brain shows no diagnostic evidence of acute cerebral infarction. Electronically signed by: Ajay Canela MD 10/17/2023 01:29 PM EDT
[2023-10-17 09:40] VITALS: BP 139/87; PULSE 75; RESP 18; TEMP 36.6; O2SAT 98; BMI 27.7
[2023-10-17 09:55] LABS: MANUAL DIFF FLAG NO
[2023-10-17 09:58] LABS: Basophils Percent Auto 0.5 % (0-2); Eosinophils Absolute Auto 0.1 X10*3/uL (0.0-0.4); Eosinophils Percent Auto 1.4 % (0-4); Hematocrit 42.1 % (37.0-47.0); Hemoglobin 14.5 g/dl (12.0-16.0); Imm Gran Abs Auto 0.01 X10*3/uL (0.00-0.03); Imm Gran Pct Auto 0.2 % (0.0-0.4); Lymphocytes Percent Auto 35.4 % (20-40); Mean Corpuscular HGB Conc 34.4 g/dl (31.0-35.0); Mean Corpuscular Hemoglobin 30.7 pg (27.0-33.0); Mean Corpuscular Volume 89.2 fL (80.0-98.0); Mean Platelet Volume 8.6 fL (9.4-12.3); Monocytes Absolute Auto 0.4 X10*3/uL (0.1-1.2); Monocytes Percent Auto 6.3 % (2-11); Neutrophils Absolute Auto 3.1 x10*3/uL (2.0-8.3); Neutrophils Percent Auto 56.2 % (45-73); Platelet Count 295 X10*3/uL (160-400); Red Blood Count 4.72 X10*6/uL (4.20-5.50); Red Cell Distribution Width 13.2 % (11.0-16.0); White Blood Count 5.5 X10*3/uL (4.8-10.8)
[2023-10-17 10:36] LABS: Alanine Aminotransferase 22 U/L (0-31); Albumin Level 4.6 g/dL (3.5-5.0); Alkaline Phosphatase 44 U/L (39-117); Anion Gap 13 (12-20); Aspartate Amino Transferase 17 U/L (5-31); Bilirubin Total 1.4 mg/dL (0.0-1.0); Blood Urea Nitrogen 9 mg/dL (9-16); Calcium 10.5 mg/dL (8.4-10.2); Carbon Dioxide 26 mmol/L (22-29); Chloride 106 mmol/L (96-108); Creatinine Clr Calc Pharmacy 89.6; Estimated Glomerular Filt Rate > 60; Glucose Random 107 mg/dL (60-115); Influenza A PCR NEGATIVE (Negative); Influenza B PCR NEGATIVE (Negative); Potassium 4.4 mmol/L (3.3-5.1); Resp Syncy Virus RNA Qual PCR NEGATIVE (Negative); SARS COV2 PCR INHOUSE NEGATIVE (Negative); Sodium 141 mmol/L (135-145); Total Protein 7.6 g/dL (6.5-8.0)
--- NOTE | 2023-10-17 16:54 | ED_ITS ---
HPI - Neuro Symptoms/Deficit General Chief Complaint: Neuro Symptoms/Deficit Stated Complaint: l face numb Time Seen by Provider: 10/17/23 16:27 Source: patient Mode of arrival: ambulatory Limitations: no limitations History of Present Illness ED Provider: Dr. Lizz Calvin HPI Narrative: patient comes to the emergency room complaining of 3 days of left-sided facial numbness tingling sensation. Patient states that she did not have any motor dysfunction, no mouth drooping. No headache. According to the patient, months ago she had an MRI done at [facility], patient was told that she had some narrowing of her arterial vessels. Patient decided to come to the hospital concerned that this may be a TIA versus stroke. Related Data Home Medications ?Medication ?Instructions ?Recorded ?Confirmed aspirin 81 mg tablet,delayed 81 mg PO DAILY 10/12/23 release cholecalciferol (vitamin D3) 50 50 mcg PO DAILY 10/12/23 mcg (2,000 unit) capsule curcumin-phosphatidylcholine 500 mg PO DAILY 10/12/23 mg capsule garlic extract 400 mg tablet 400 mg PO DAILY 10/12/23 lorazepam 1 mg tablet (Ativan) 1 mg PO DAILY PRN 10/12/23 mecobalamin (vitamin B12) 1,000 1,000 mcg PO DAILY 10/12/23 mcg chewable tablet vitamin K2 45 mcg capsule 45 mcg PO DAILY 10/12/23 Previous Rx's ?Medication ?Instructions ?Recorded amlodipine 5 mg tablet 5 mg PO DAILY 7 days #7 tabs 09/21/23 Allergies Allergy/AdvReac Type Severity Reaction Status Date / Time atorvastatin Allergy Weakness Verified 10/17/23 09:44 Review of Systems 2 Review of Systems: Constitutional : No Weight loss, No Fever, No Chills, No Night Sweats, No Fatigue, No Malaise ENT/Mouth : No Hearing loss, No Ear Pain, No Nasal Congestion, No Sinus Pain, No Hoarseness, No sore throat, No Rhinorrhea, No Swallowing Difficulty Eyes: No Eye Pain, No Swelling, No Redness, No Foreign Body, No Discharge, No Vision Changes Cardiovascular : No Chest Pain, No SOB, No Dyspnea on Exertion, No Orthopnea, No Edema, No Palpitations Respiratory : No Cough, No Sputum, No Wheezing, No Smoke Exposure, No Dyspnea Gastrointestinal : No Nausea, No Vomiting, No Diarrhea, No Constipation, No abdominal Pain, No Hematochezia, No Melena Genitourinary : no irregular bleeding, No Dysuria, No Urinary Frequency, No Hematuria, No Urinary Incontinence, No Urgency, No Flank Pain, No Urinary Flow Changes, No Hesitancy Musculoskeletal : No joint pain, No Myalgias, No Joint Swelling Skin : No Skin Lesions, No rash Neuro : No Weakness, No Numbness, Complaining of left facial paresthesias No Loss of Consciousness, No Dizziness, No Headache Psych : No Anxiety/Panic, No Depression, No SI/HI/AH/VH, No Social Issues, Heme/Lymph: No Bruising, No Bleeding,No Lymphadenopathy Endocrine : No Polyuria, No Polydipsia, No Temperature Intolerance [facility] Past Medical History Medical History UTI (urinary tract infection) Fatigue Weight gain HTN (hypertension) Constipation Lumbar pain Left sided abdominal pain Depression Chronic back pain Surgical History History of surgery on lower extremity Family History Family History Sister Melanoma Maternal Grandfather Colon cancer Family/Other Hodgkin lymphoma Social History Social History Alcohol intake: current Alcohol intake frequency: holidays/special occasions only Patient Tobacco Use Status: Current someday Tobacco user Advance Directives: No Advance Directives Information Provided: No Do you have a plan to hurt others: No Plan Physical Exam 2 Vital Signs: Vital Signs: Last Vital Signs Temp 97.9 F 10/17/23 17:51 Pulse 70 10/17/23 17:51 Resp 20 10/17/23 17:51 BP 127/80 10/17/23 17:51 Pulse Ox 98 10/17/23 17:51 O2 Del Method Room Air 10/17/23 17:51 BMI result Body Mass Index 27.7 Const: Other: Appearance: Alert. Oriented X3. No acute distress. Eyes: Pupils equal, round and reactive to light. ENT: Pharynx normal. Neck: Normal inspection. Neck supple. No lymph nodes noted. No crepitus CVS: Normal heart rate and rhythm. Pulses normal. Normal S1 and S2 Respiratory: No respiratory distress. Breath sounds normal. No Wheezing. No rales Abdomen: Soft and nontender. No rigidity. No distention. Skin: Skin warm and dry. Normal skin color. Normal skin turgor. Extremities: No lower extremity edema. No Lacerations. No Rash Neuro: Oriented X 3. No motor deficit. No sensory deficit. Moving all extremities. No slurred speech. CN 2 through 12 grossly intact Psych: calm, cooperative, normal affect Course Course Course Narrative: patient's NIH score is 0, patient has been symptomatic for 3 days. Patient is outside the window of treatment in case this would be CVA - patient's vitals stable, normal blood pressure - we have requested records from [facility], patient's previous brain MRI Medications Administered Discontinued Medications Generic Name Dose Route Start Last Admin Trade Name Freq PRN Reason Stop Dose Admin Iohexol 100 ml 10/17/23 16:59 10/17/23 17:03 Iohexol 350 Mg/Ml 100 Ml Infus..Btl IV 10/17/23 17:00 70 ml ONCE ONE Administration Medical Decision Making Medical Decision Making [facility] Narrative: my interpretation of labs: Hematology and chemistry at baseline, serology negative for influenza RSV and COVID - my interpretation of CT scan, no obvious abnormality. given the patient's symptoms, we will proceed with a CTA of head and neck - patient's CTA does not show any obvious abnormality. - I discussed the patient with our hospitalist Dr. Cruz, patient has no neurological deficits, after 3 days of symptoms, both CT and CTA are negative. No need for admission, I agree with Dr. Cruz. Patient would also like to be discharged home and have a follow-up with her primary care physician. I discussed with the patient that although we requested records from [facility], we never obtain them. Patient states that she will follow-up with her PCP. Depending on the results of her MRI, patient may need a vascular ultrasound plus-minus a vascular surgery consult, patient agrees with plan Differential Diagnosis Differential Diagnoses: The differential diagnosis associated with the presentation includes ( paresthesias, TIA, CVA) Admission/Observation Consideration of admission/observation: Escalation of care including admission/observation considered Consult Healthcare Provider Management of the patient was discussed with: Hospitalist Lab Data [facility] Lab Attestation statement: I reviewed the patient's lab results. 10/17/23 09:49 10/17/23 09:49 Labs: Lab Results 10/17/23 Range/Units 09:49 WBC 5.5 (4.8-10.8) X10*3/uL RBC 4.72 (4.20-5.50) X10*6/uL Hgb 14.5 (12.0-16.0) g/dl Hct 42.1 (37.0-47.0) % MCV 89.2 (80.0-98.0) fL MCH 30.7 (27.0-33.0) pg MCHC 34.4 (31.0-35.0) g/dl RDW 13.2 (11.0-16.0) % Plt Count 295 (160-400) X10*3/uL MPV 8.6 L (9.4-12.3) fL Immature Gran % (Auto) 0.2 (0.0-0.4) % Neut % (Auto) 56.2 (45-73) % Lymph % (Auto) 35.4 (20-40) % Ransom % (Auto) 6.3 (2-11) % Eos % (Auto) 1.4 (0-4) % Baso % (Auto) 0.5 (0-2) % Lymph # (Auto) 2.0 (1.2-4.9) X10*3/uL Ransom # (Auto) 0.4 (0.1-1.2) X10*3/uL Eos # (Auto) 0.1 (0.0-0.4) X10*3/uL Baso # (Auto) 0.0 (0.0-0.2) X10*3/uL Abs Immat Gran (auto) 0.01 (0.00-0.03) X10*3/uL Absolute Neuts (auto) 3.1 (2.0-8.3) x10*3/uL Absolute Nucleated RBC 0.000 (0.0-0.012) X10*3/uL Nucleated RBC % (auto) 0.0 (0.0-0.2) /100WBC Sodium 141 (135-145) mmol/L Potassium 4.4 (3.3-5.1) mmol/L Chloride 106 (96-108) mmol/L Carbon Dioxide 26 (22-29) mmol/L Anion Gap 13 (12-20) BUN 9 (9-16) mg/dL Creatinine 0.72 (0.5-1.4) mg/dL Estim Creat Clear Calc 89.6 Estimated GFR > 60 Random Glucose 107 (60-115) mg/dL Calcium 10.5 H (8.4-10.2) mg/dL Total Bilirubin 1.4 H (0.0-1.0) mg/dL AST 17 (5-31) U/L ALT 22 (0-31) U/L Alkaline Phosphatase 44 (39-117) U/L Total Protein 7.6 (6.5-8.0) g/dL Albumin 4.6 (3.5-5.0) g/dL Influenza Type A (PCR) NEGATIVE (Negative) Influenza Type B (PCR) NEGATIVE (Negative) RSV RNA Qual (PCR) NEGATIVE (Negative) SARS-CoV-2 RNA (RT-PCR) NEGATIVE (Negative) Independent Interpretation I performed an independent interpretation of an: EKG and CT Scan Radiology Impression Discussion of test interpretation with radiology: I have reviewed the radiologist's reading. Radiologist Impression: IMPRESSION: 1. Mild cerebral atrophy for patient's age. 2. No intracranial hemorrhage or skull fracture is seen. 3. No evidence of space occupying lesion could be found. 4. The current plain CT scan of the brain shows no diagnostic evidence of acute cerebral infarction. NIH Stroke Scale Internal: Initial- Upon Arrival Level of Consciousness: Alert Level of Consciousness Questions: Answers both questions correctly Level of Consciousness Commands: Performs both tasks correctly Best Gaze: Normal Visual: No visual loss Facial Palsy: Normal Motor Arm (Right): No drift Motor Arm (Left): No drift Motor Leg (Right): No drift Motor Leg (Left): No drift Limb Ataxia: Absent Sensory: Normal Best Language: No aphasia Dysarthia: Normal Extinction and Inattention: No abnormality Score: 0 Critical Care Time Critical Care Time Critical Care Time: Yes Total Critical Care Time: 45 Attestation: I have personally provided critical care time. Time includes review of lab data, radiology results, discussion with consultants, and monitoring for potential decompensation. Intervention performed as documented. Discharge Plan Discharge Clinical Impression: Facial paresthesia Patient Disposition: Home, Self-Care Instructions: Paresthesia (ED) Additional Instructions: Please follow-up with your primary care physician tomorrow. If you have any worsening or new symptoms, please return to the emergency room or call 911 Prescriptions: No Action amlodipine 5 mg tablet 5 mg PO DAILY 7 Days Qty: 7 0RF aspirin 81 mg tablet,delayed release (DR/EC) 81 mg PO DAILY lorazepam [Ativan] 1 mg tablet 1 mg PO DAILY PRN cholecalciferol (vitamin D3) 50 mcg (2,000 unit) capsule 50 mcg PO DAILY mecobalamin (vitamin B12) 1,000 mcg tablet,chewable 1,000 mcg PO DAILY vitamin K2 45 mcg capsule 45 mcg PO DAILY garlic extract 400 mg tablet 400 mg PO DAILY curcumin-phosphatidylcholine 500 mg capsule PO DAILY Print Language: Macanese
[2023-10-17] MEDS: iohexoL 350 MG/ML 100 ML INFUS..BTL IV (17:03)
[2023-10-17 17:51] VITALS: BP 127/80; PULSE 70; RESP 20; TEMP 36.6; O2SAT 98
--- NOTE | 2023-10-17 19:40 | ECG_ITS ---
Test Reason : PARASTHESIA Blood Pressure : / mmHG Vent. Rate : 068 BPM Atrial Rate : 068 BPM P-R Int : 132 ms QRS Dur : 098 ms QT Int : 434 ms P-R-T Axes : 044 046 057 degrees QTc Int : 461 ms Normal sinus rhythm Normal ECG When compared with ECG of 11-OCT-2023 11:48, No significant change was found Referred By: Lizz Calvin Electronically Signed By:PRADIP PARRA
[2023-10-17 20:41] VITALS: BP 138/80; PULSE 76; RESP 16; TEMP 36.6; O2SAT 98
[2023-10-17 20:50] VITALS: BP 138/80; PULSE 76; RESP 16; TEMP 36.6; O2SAT 98
== END 2023-10-17 20:50 | disposition home or self-care (01) ==
PROVIDERS: Emergency Provider Emergency Medicine
DX: R20.2 Paresthesia of skin (principal); I10 Essential (primary) hypertension; Z03.818 Encounter for observation for suspected exposure to other biological agents ruled out; Z79.899 Other long term (current) drug therapy
CPT/HCPCS: 0241U; 70450; 70496; 70498; 80053; 85025; 93005; 99284; Q9967

== ENCOUNTER 2023-10-24 16:17 | Emergency (ER) | payer OTHER, SELFPAY ==
[2023-10-24 16:26] VITALS: BP 138/85; PULSE 78; RESP 16; TEMP 36.4; O2SAT 96; BMI 27.5
--- NOTE | 2023-10-24 17:45 | ECG_ITS ---
Test Reason : PAIN Blood Pressure : / mmHG Vent. Rate : 071 BPM Atrial Rate : 071 BPM P-R Int : 126 ms QRS Dur : 098 ms QT Int : 424 ms P-R-T Axes : 054 064 056 degrees QTc Int : 460 ms Normal sinus rhythm Normal ECG When compared with ECG of 17-OCT-2023 19:50, No significant change was found Referred By: Calvin Merlos Electronically Signed By:PRADIP PARRA
[2023-10-24 18:42] LABS: MANUAL DIFF FLAG NO
--- NOTE | 2023-10-24 18:43 | ED_ITS ---
HPI - General Adult General Chief complaint: General Medical Stated complaint: pressure in neck x 2weeks,abd pain,r knee swelling Time Seen by Provider: 10/24/23 17:08 Source: patient, RN notes reviewed and old records reviewed Mode of arrival: ambulatory Limitations: no limitations History of Present Illness ED Provider: Gaurang HEARN narrative: 53-year-old female with past medical history significant for hypertension presents for evaluation of a ?fullness in my neck and numbness in my chin. ? Patient reports that she was seen last week for similar symptoms. She states the fullness seems to be worse. She reports the numbness is new since last night but her note from a week ago reports she was complaining of numbness to her neck and chin She denies any sharp pain She does complain of mild generalized abdominal pain She reports a 20 lb weight loss in the last 3 weeks despite not dieting She reports decreased appetite Denies any chest pain, shortness of breath pain She does endorse occasional palpitations Denies any fevers, chills Related Data Home Medications ?Medication ?Instructions ?Recorded ?Confirmed aspirin 81 mg tablet,delayed 81 mg PO DAILY 10/12/23 release cholecalciferol (vitamin D3) 50 50 mcg PO DAILY 10/12/23 mcg (2,000 unit) capsule curcumin-phosphatidylcholine 500 mg PO DAILY 10/12/23 mg capsule garlic extract 400 mg tablet 400 mg PO DAILY 10/12/23 lorazepam 1 mg tablet (Ativan) 1 mg PO DAILY PRN 10/12/23 mecobalamin (vitamin B12) 1,000 1,000 mcg PO DAILY 10/12/23 mcg chewable tablet vitamin K2 45 mcg capsule 45 mcg PO DAILY 10/12/23 Previous Rx's ?Medication ?Instructions ?Recorded amlodipine 5 mg tablet 5 mg PO DAILY 7 days #7 tabs 09/21/23 Allergies Allergy/AdvReac Type Severity Reaction Status Date / Time atorvastatin Allergy Weakness Verified 10/24/23 16:30 Review of Systems 2 Constitutional: Constitutional: Denies body ache(s), Denies chills, Reports difficulty sleeping, Denies fever(s), Denies headache(s), Reports poor appetite and Reports weight loss Eyes: Eyes: Denies blurry vision ENT: Denies vertigo, Denies dizziness and Denies headache(s) Cardiovascular: Cardiovascular: Denies chest pain, Reports rapid heart rate, Reports palpitations and Denies dyspnea Respiratory: Respiratory: Denies cough and Denies dyspnea Gastrointestinal: Gastrointestinal: Denies abdominal pain Musculoskeletal: Musculoskeletal: Denies abnormal gait, Denies back pain, Reports numbness and Reports tingling Integumentary/Breasts: Skin/Breast: Denies rash Neurologic: Denies Abnormal speech present, Denies abnormal gait, Denies vertigo, Denies dizziness, Denies headache(s), Reports numbness, Denies seizure- like activity, Reports tingling and Reports paresthesias Psychiatric: Psychiatric: Denies anxiety Endocrine: Endocrine: Reports palpitations PMFSH Past Medical History Medical History UTI (urinary tract infection) Fatigue Weight gain HTN (hypertension) Constipation Lumbar pain Left sided abdominal pain Depression Chronic back pain Surgical History History of surgery on lower extremity Family History Family History Sister Melanoma Maternal Grandfather Colon cancer Family/Other Hodgkin lymphoma Social History Social History Alcohol intake: current Alcohol intake frequency: holidays/special occasions only Patient Tobacco Use Status: Current someday Tobacco user Advance Directives: No Advance Directives Information Provided: No Do you have a plan to hurt others: No Plan Physical Exam ED Vital Signs: Vital Signs - 24 hr 10/24/23 16:26 Temperature 97.6 F Pulse Rate 78 Respiratory Rate 16 Blood Pressure 138/85 Pulse Oximetry 96 Oxygen Delivery Method Room Air BMI result Body Mass Index 27.5 Const General: healthy appearing, comfortable, no acute distress, alert and awake Nutritional Appearance: well nourished Orientation/consciousness: patient oriented x3 HENMT Head: Yes normocephalic and Yes atraumatic Eyes Eyelids: Yes eyelids normal Conjunctivae: conjunctivae normal Sclerae: sclerae normal Corneas: corneas normal Pupils: Equal, round and reactive pupils present EOM: EOMs intact bilaterally Neck Neck: Yes full ROM Resp Effort & Inspection: normal respiratory effort, able to speak in complete sentences, no audible wheezes and not labored Auscultation: clear to auscultation bilaterally Cardio Rate: regular rate Rhythm: regular rhythm GI Inspection: No distended Palpation (GI): Soft to palpation, not firm, nontender, no guarding and not rigid Skin General skin exam: elasticity normal Neuro General: patient oriented x3 Cranial nerves: Yes Equal, round and reactive pupils present and Yes Bilaterally intact EOM present Cognition (Neuro): normal cognition Speech: No Abnormal speech present Extrem Other: Moving all extremities well without any obvious deformities Medical Decision Making Medical Decision Making MDM Narrative: 53-year-old female presents for evaluation of multiple complaints including neck fullness, numbness and tingling in her chin, palpitations, weight loss over the last 3 weeks. She had a stroke workup a week ago today including his CT angiography of the head and neck and a dry CT scan of the head. He has had no acute findings. It did show a multinodular enlarged thyroid. Plan for thyroid studies, cardiac workup including EKG, troponin and electrolyte studies but could contribute to the paresthesias. The patient is hemodynamically stable, she has no neuro deficits. Her NIH stroke score is a 0. She also reports per previous notes that she had an MRI of her brain within the last few months that did not have any acute findings Differential Diagnosis Differential Diagnoses: The differential diagnosis associated with the presentation includes Anxiety Paresthesias Hyperthyroidism Thyroid storm Lab Data 10/24/23 18:37 10/24/23 18:37 Labs: Lab Results 10/24/23 Range/Units 18:37 WBC 5.9 (4.8-10.8) X10*3/uL RBC 4.46 (4.20-5.50) X10*6/uL Hgb 13.8 (12.0-16.0) g/dl Hct 39.6 (37.0-47.0) % MCV 88.8 (80.0-98.0) fL MCH 30.9 (27.0-33.0) pg MCHC 34.8 (31.0-35.0) g/dl RDW 13.3 (11.0-16.0) % Plt Count 302 (160-400) X10*3/uL MPV 8.6 L (9.4-12.3) fL Immature Gran % (Auto) 0.2 (0.0-0.4) % Neut % (Auto) 55.9 (45-73) % Lymph % (Auto) 37.5 (20-40) % [place] % (Auto) 5.3 (2-11) % Eos % (Auto) 0.8 (0-4) % Baso % (Auto) 0.3 (0-2) % Lymph # (Auto) 2.2 (1.2-4.9) X10*3/uL [place] # (Auto) 0.3 (0.1-1.2) X10*3/uL Eos # (Auto) 0.1 (0.0-0.4) X10*3/uL Baso # (Auto) 0.0 (0.0-0.2) X10*3/uL Abs Immat Gran (auto) 0.01 (0.00-0.03) X10*3/uL Absolute Neuts (auto) 3.3 (2.0-8.3) x10*3/uL Absolute Nucleated RBC 0.000 (0.0-0.012) X10*3/uL Nucleated RBC % (auto) 0.0 (0.0-0.2) /100WBC PT 11.6 (11.1-13.3) SEC INR 1.0 (0.9-1.1) D-Dimer High Sensitivty 185 NG/ML Sodium 141 (135-145) mmol/L Potassium 3.9 (3.3-5.1) mmol/L Chloride 106 (96-108) mmol/L Carbon Dioxide 26 (22-29) mmol/L Anion Gap 13 (12-20) BUN 12 (9-16) mg/dL Creatinine 0.76 (0.5-1.4) mg/dL Estim Creat Clear Calc 84.5 Estimated GFR > 60 Random Glucose 91 (60-115) mg/dL Calcium 10.3 H (8.4-10.2) mg/dL Magnesium 2.2 (1.6-2.6) mg/dL Total Bilirubin 1.5 H (0.0-1.0) mg/dL AST 14 (5-31) U/L ALT 16 (0-31) U/L Alkaline Phosphatase 42 (39-117) U/L Troponin I High Sens < 2.7 (<3.5-17.0) ng/L Total Protein 7.4 (6.5-8.0) g/dL Albumin 4.6 (3.5-5.0) g/dL Lipase 16 (8-78) U/L TSH 0.57 (0.32-4.0) uIU/mL Discharge Plan Discharge Clinical Impression: Numbness and tingling, Heart palpitations Patient Disposition: Home, Self-Care Instructions: Paresthesia (ED), Heart Palpitations (ED) Additional Instructions: Your thyroid function tests were reassuring. Your cardiac workup was also reassuring The remainder of your blood work was also without any significant abnormalities. Follow-up with your primary doctor. You may benefit from an outpatient dedicated thyroid ultrasound Prescriptions: No Action amlodipine 5 mg tablet 5 mg PO DAILY 7 Days Qty: 7 0RF aspirin 81 mg tablet,delayed release (DR/EC) 81 mg PO DAILY lorazepam [Ativan] 1 mg tablet 1 mg PO DAILY PRN cholecalciferol (vitamin D3) 50 mcg (2,000 unit) capsule 50 mcg PO DAILY mecobalamin (vitamin B12) 1,000 mcg tablet,chewable 1,000 mcg PO DAILY vitamin K2 45 mcg capsule 45 mcg PO DAILY garlic extract 400 mg tablet 400 mg PO DAILY curcumin-phosphatidylcholine 500 mg capsule PO DAILY Print Language: [place]
[2023-10-24 18:49] LABS: Prothrombin Time 11.6 SEC (11.1-13.3)
[2023-10-24 18:51] LABS: D Dimer High Sensitivity 185 NG/ML
[2023-10-24 18:59] LABS: Basophils Percent Auto 0.3 % (0-2); Eosinophils Absolute Auto 0.1 X10*3/uL (0.0-0.4); Eosinophils Percent Auto 0.8 % (0-4); Hematocrit 39.6 % (37.0-47.0); Hemoglobin 13.8 g/dl (12.0-16.0); Imm Gran Abs Auto 0.01 X10*3/uL (0.00-0.03); Imm Gran Pct Auto 0.2 % (0.0-0.4); Lymphocytes Absolute Auto 2.2 X10*3/uL (1.2-4.9); Lymphocytes Percent Auto 37.5 % (20-40); Mean Corpuscular HGB Conc 34.8 g/dl (31.0-35.0); Mean Corpuscular Hemoglobin 30.9 pg (27.0-33.0); Mean Corpuscular Volume 88.8 fL (80.0-98.0); Mean Platelet Volume 8.6 fL (9.4-12.3); Monocytes Absolute Auto 0.3 X10*3/uL (0.1-1.2); Monocytes Percent Auto 5.3 % (2-11); Neutrophils Absolute Auto 3.3 x10*3/uL (2.0-8.3); Neutrophils Percent Auto 55.9 % (45-73); Platelet Count 302 X10*3/uL (160-400); Red Blood Count 4.46 X10*6/uL (4.20-5.50); Red Cell Distribution Width 13.3 % (11.0-16.0); White Blood Count 5.9 X10*3/uL (4.8-10.8)
[2023-10-24 19:06] LABS: Alanine Aminotransferase 16 U/L (0-31); Albumin Level 4.6 g/dL (3.5-5.0); Alkaline Phosphatase 42 U/L (39-117); Anion Gap 13 (12-20); Aspartate Amino Transferase 14 U/L (5-31); Bilirubin Total 1.5 mg/dL (0.0-1.0); Blood Urea Nitrogen 12 mg/dL (9-16); Calcium 10.3 mg/dL (8.4-10.2); Carbon Dioxide 26 mmol/L (22-29); Chloride 106 mmol/L (96-108); Creatinine Clr Calc Pharmacy 84.5; Estimated Glomerular Filt Rate > 60; Glucose Random 91 mg/dL (60-115); Lipase 16 U/L (8-78); Magnesium 2.2 mg/dL (1.6-2.6); Potassium 3.9 mmol/L (3.3-5.1); Sodium 141 mmol/L (135-145); Total Protein 7.4 g/dL (6.5-8.0)
[2023-10-24 19:08] LABS: Troponin-I High Sensitivity < 2.7 ng/L (<3.5-17.0)
[2023-10-24 19:20] LABS: TSH reflex Free T4 0.57 uIU/mL (0.32-4.0)
[2023-10-24 20:14] VITALS: BP 138/85; PULSE 78; RESP 16; TEMP 36.4; O2SAT 96
== END 2023-10-24 20:15 | disposition home or self-care (01) ==
PROVIDERS: Physician Assistant; Emergency Provider Emergency Medicine
DX: R20.0 Anesthesia of skin (principal); R00.2 Palpitations; R10.84 Generalized abdominal pain; I10 Essential (primary) hypertension; F17.210 Nicotine dependence, cigarettes, uncomplicated; Z79.82 Long term (current) use of aspirin
CPT/HCPCS: 36415; 80053; 83690; 83735; 84443; 84484; 85025; 85379; 85610; 93005; 99283

== ENCOUNTER 2023-11-07 12:41 | Emergency (ER) | payer OTHER, SELFPAY ==
--- NOTE | ~2023-11-07 | XR_ITS ---
EXAMINATION: XR CHEST CLINICAL INFORMATION: Cough. Bloody sputum. COMPARISON: Chest x-ray October 11, 2023 TECHNIQUE: 2 views of the chest were obtained. FINDINGS: No significant abnormality is noted involving the heart, lungs, mediastinum, bony thorax or soft tissues. XR/XR chest 2V IMPRESSION: Unremarkable examination. Electronically signed by: Kannan Duran MD 11/07/2023 03:39 PM EDT RP
--- NOTE | 2023-11-07 12:50 | ED.GENADULT ---
HPI - General Adult General Chief complaint: Upper Respiratory Symptoms Stated complaint: PT STS COUGHING BLOOD,NO COUGH DURING TX PER EMS Time Seen by Provider: 11/07/23 12:49 Source: patient, EMS and RN notes reviewed Mode of arrival: EMS Limitations: no limitations History of Present Illness ED Provider: nghia HPI narrative: Patient is a 53-year-old female with history of HTN, HLD, depression, intermittent smoker, states has not smoked for the past year presenting to the emergency department with complaint of hemoptysis this morning. Reports dry cough for the past month. This morning, coughed up sputum and tasted blood, but when she spit it out, it appeared clear. She then went to the bathroom and saw a small amount of blood to the corner of her mouth and noted small amount of pooled blood in lower lip. She then coughed again and her sputum was bloody. Denies fevers. Denies chest pain but reports chest heaviness at times. Denies recent calf pain or swelling. Denies pedal edema. Denies recent travel. Denies dizziness or lightheadedness. MD complaint: hemoptysis Onset (ago): hour(s) Associated symptoms: cough Treatments prior to arrival: none Related Data Home Medications ?Medication ?Instructions ?Recorded ?Confirmed aspirin 81 mg tablet,delayed 81 mg PO DAILY 10/12/23 release cholecalciferol (vitamin D3) 50 50 mcg PO DAILY 10/12/23 mcg (2,000 unit) capsule curcumin-phosphatidylcholine 500 mg PO DAILY 10/12/23 mg capsule garlic extract 400 mg tablet 400 mg PO DAILY 10/12/23 lorazepam 1 mg tablet (Ativan) 1 mg PO DAILY PRN 10/12/23 mecobalamin (vitamin B12) 1,000 1,000 mcg PO DAILY 10/12/23 mcg chewable tablet vitamin K2 45 mcg capsule 45 mcg PO DAILY 10/12/23 Previous Rx's ?Medication ?Instructions ?Recorded amlodipine 5 mg tablet 5 mg PO DAILY 7 days #7 tabs 09/21/23 albuterol sulfate 90 mcg/actuation 2 puff inhalation Q4-6H PRN 11/07/23 aerosol inhaler shortness of breath or wheezing #6.7 grams azithromycin 250 mg tablet See Rx Instructions PO .COMPLEX #6 11/07/23 tabs benzonatate 100 mg capsule 100 mg PO TID PRN cough #14 caps 11/07/23 prednisone 20 mg tablet 20 mg PO DAILY #7 tabs 11/07/23 Allergies Allergy/AdvReac Type Severity Reaction Status Date / Time atorvastatin Allergy Weakness Verified 11/07/23 12:55 Review of Systems Review of Systems: As per HPI. Yes all other systems are reviewed and are negative Constitutional: Constitutional: Reports as per HPI PENDING SALE TO [facility] Past Medical History Medical History UTI (urinary tract infection) Fatigue Weight gain HTN (hypertension) Constipation Lumbar pain Left sided abdominal pain Depression Chronic back pain Surgical History History of surgery on lower extremity Family History Family History Sister Melanoma Maternal Grandfather Colon cancer Family/Other Hodgkin lymphoma Social History Social History Alcohol intake: current Alcohol intake frequency: holidays/special occasions only Patient Tobacco Use Status: Current someday Tobacco user Smoked in Last 30 Days: No Use of substances other than those prescribed or required for medical reasons: No Advance Directives: No Advance Directives Information Provided: Yes Do you have a plan to hurt others: No Plan Patient : No Physical Exam ED Vital Signs: Vital Signs - 24 hr 11/07/23 12:52 11/07/23 13:01 11/07/23 14:00 Temperature 98.0 F 98.0 F 99.5 F Pulse Rate 78 78 75 Respiratory Rate 16 16 18 Blood Pressure 159/87 H 159/87 H 143/88 H Pulse Oximetry 95 95 98 Oxygen Delivery Method Room Air Room Air Room Air BMI result Body Mass Index 27.5 Vital signs have been reviewed and appear to be correct. Blood pressure elevated. Heart rate normal. Respiratory rate normal. Temperature normal. Oxygen saturation normal. Const General: cooperative, healthy appearing and no acute distress Orientation/consciousness: oriented to person, oriented to place, oriented to time and patient oriented x3 Limitations: no limitations HENMT Head: Yes normocephalic and Yes atraumatic Ears: external ears normal General nose exam: Normal external nose present Face and sinus: Yes face symmetric Mouth: oropharynx normal and moist mucous membranes Throat: Yes uvula midline Eyes Pupils: Equal, round and reactive pupils present Neck Neck: Yes normal visual inspection and Yes supple Resp Effort & Inspection: normal respiratory effort and able to speak in complete sentences Auscultation: clear to auscultation bilaterally Cardio Rate: regular rate Rhythm: regular rhythm Heart sounds: S1 normal heart sound present and S2 normal heart sound present GI Palpation (GI): Soft to palpation and nontender Auscultation: normoactive bowel sounds General: Yes no CVA tenderness Back/Spine/Pelvis Back: no CVA tenderness Skin General skin exam: elasticity normal and turgor normal Neuro General: oriented to person, oriented to place, oriented to time, patient oriented x3, moves all extremities, no focal motor deficits and CN's II-XI intact bilaterally Cranial nerves: Yes Equal, round and reactive pupils present Cognition (Neuro): normal cognition Extrem General: Yes full ROM, Yes no pedal edema and Yes no calf tenderness Psych Mental Status: mental status grossly normal Affect: normal affect Thought process: Normal thought process present Medical Decision Making Medical Decision Making [facility] Narrative: Patient is a 53-year-old female with history of HTN, HLD, depression, intermittent smoker, states has not smoked for the past year presenting to the emergency department with complaint of hemoptysis this morning. On exam patient is awake, A+Ox3, VS WNL, afebrile, normal neurological exam without focal deficits, physical exam findings as above. Given reported symptoms and physical exam findings, initial differential includes viral illness, flu, covid, bronchitis, pneumonia. Less likely TB, malignancy/mass. No coughing noted during exam. Labs notable for no leukocytosis, no anemia, D-dimer negative, negative troponin, no electrolyte abnormalities. X-ray notable for no cavitation, no mass, no evidence of pneumonia. My interpretation is in agreement with the radiologist's interpretation. Viral serology negative. Feel patient is stable for discharge home. Differential Diagnosis Differential Diagnoses: The differential diagnosis associated with the presentation includes As per [facility] Admission/Observation Consideration of admission/observation: Escalation of care including admission/observation considered Patient would have been admitted to the hospital had their work up had any findings where hospital admission was appropriate and their clinical presentation warranted hospital admission. Lab Data [facility] Lab Attestation statement: I reviewed the patient's lab results. As per [facility] 11/07/23 13:38 11/07/23 13:38 Labs: Lab Results 11/07/23 Range/Units 13:38 WBC 5.3 (4.8-10.8) X10*3/uL RBC 4.46 (4.20-5.50) X10*6/uL Hgb 13.8 (12.0-16.0) g/dl Hct 39.4 (37.0-47.0) % MCV 88.3 (80.0-98.0) fL MCH 30.9 (27.0-33.0) pg MCHC 35.0 (31.0-35.0) g/dl RDW 13.6 (11.0-16.0) % Plt Count 322 (160-400) X10*3/uL MPV 8.4 L (9.4-12.3) fL Immature Gran % (Auto) 0.2 (0.0-0.4) % Neut % (Auto) 52.8 (45-73) % Lymph % (Auto) 38.5 (20-40) % [place] % (Auto) 6.6 (2-11) % Eos % (Auto) 1.3 (0-4) % Baso % (Auto) 0.6 (0-2) % Lymph # (Auto) 2.1 (1.2-4.9) X10*3/uL [place] # (Auto) 0.4 (0.1-1.2) X10*3/uL Eos # (Auto) 0.1 (0.0-0.4) X10*3/uL Baso # (Auto) 0.0 (0.0-0.2) X10*3/uL Abs Immat Gran (auto) 0.01 (0.00-0.03) X10*3/uL Absolute Neuts (auto) 2.8 (2.0-8.3) x10*3/uL Absolute Nucleated RBC 0.000 (0.0-0.012) X10*3/uL Nucleated RBC % (auto) 0.0 (0.0-0.2) /100WBC Hold Purple Top SEE NOTE D-Dimer High Sensitivty 190 NG/ML Sodium 141 (135-145) mmol/L Potassium 4.0 (3.3-5.1) mmol/L Chloride 105 (96-108) mmol/L Carbon Dioxide 27 (22-29) mmol/L Anion Gap 13 (12-20) BUN 12 (9-16) mg/dL Creatinine 0.81 (0.5-1.4) mg/dL Estim Creat Clear Calc 79.3 Estimated GFR > 60 Random Glucose 99 (60-115) mg/dL Calcium 10.1 (8.4-10.2) mg/dL Total Bilirubin 1.2 H (0.0-1.0) mg/dL AST 16 (5-31) U/L ALT 17 (0-31) U/L Alkaline Phosphatase 52 (39-117) U/L Troponin I High Sens < 2.7 (<3.5-17.0) ng/L Total Protein 7.2 (6.5-8.0) g/dL Albumin 4.4 (3.5-5.0) g/dL Influenza Type A (PCR) NEGATIVE (Negative) Influenza Type B (PCR) NEGATIVE (Negative) RSV RNA Qual (PCR) NEGATIVE (Negative) SARS-CoV-2 RNA (RT-PCR) NEGATIVE (Negative) Independent Interpretation I performed an independent interpretation of an: Plain X-Ray Interpretation: X-ray notable for no cavitation, no mass, no evidence of pneumonia. Radiology Impression Discussion of test interpretation with radiology: I have reviewed the radiologist's reading. Radiologist Impression: XR/XR chest 2V IMPRESSION: Unremarkable examination. External Record Review External record reviewed: Inpatient record, Office record and Outpatient record Prescription Management I considered prescription management with: Antibiotic and Other Discharge Plan Discharge Clinical Impression: Bronchitis Patient Disposition: Home, Self-Care Instructions: Acute Bronchitis (ED) Additional Instructions: You were evaluated in the emergency department today for cough and bloody sputum. You are being treated for bronchitis with an antibiotic, please complete the full course as prescribed. You are also being prescribed a short course of steroids to decrease inflammation. You are being prescribed an inhaler which you can use every 4-6 hours as needed for shortness of breath. You are being prescribed cough medication which you can use every 8 hours as needed, KEEP THIS OUT OF REACH OF CHILDREN. Please follow-up with your primary care provider this week. Return to the emergency department if you develop worsening shortness of breath, difficulty breathing, chest pain, fever not improved with Tylenol or ibuprofen, or any other concerning symptoms. Prescriptions: New prednisone 20 mg tablet 20 mg PO DAILY Qty: 7 0RF azithromycin 250 mg tablet See Rx Instructions .ROUTE .COMPLEX Qty: 6 0RF Rx Instructions: For 250 mg dose pack: take 500 mg today (day 1), then 250 mg for 4 days (days 2-5) albuterol sulfate 90 mcg/actuation HFA aerosol inhaler 2 puff inhalation Q4-6H PRN (Reason: shortness of breath or wheezing) Qty: 6.7 0RF benzonatate 100 mg capsule 100 mg PO TID PRN (Reason: cough) Qty: 14 0RF No Action amlodipine 5 mg tablet 5 mg PO DAILY 7 Days Qty: 7 0RF aspirin 81 mg tablet,delayed release (DR/EC) 81 mg PO DAILY lorazepam [Ativan] 1 mg tablet 1 mg PO DAILY PRN cholecalciferol (vitamin D3) 50 mcg (2,000 unit) capsule 50 mcg PO DAILY mecobalamin (vitamin B12) 1,000 mcg tablet,chewable 1,000 mcg PO DAILY vitamin K2 45 mcg capsule 45 mcg PO DAILY garlic extract 400 mg tablet 400 mg PO DAILY curcumin-phosphatidylcholine 500 mg capsule PO DAILY Print Language: [place]ijani
[2023-11-07 12:52] VITALS: BP 150/90; BP 159/87; PULSE 75; PULSE 78; RESP 16; TEMP 36.7; O2SAT 100; O2SAT 95; BMI 27.5
[2023-11-07 13:01] VITALS: BP 159/87; PULSE 78; RESP 16; TEMP 36.7; O2SAT 95
--- NOTE | 2023-11-07 13:08 | PC.NURSE ---
Pt comes to ED today for c/o new onset of coughing up blood. Pt reports ongoing dry cough since August 2023 then progressed to a phlegmy productive cough until this AM when she was brushing her teeth and she noted a metallic taste to her mouth and pink tinged tongue. Pt reports additional symptoms intermittent abd pain, weight loss, and loss of appetite. VSS, afebrile, A&OX3
[2023-11-07 13:45] LABS: MANUAL DIFF FLAG NO
[2023-11-07 13:50] LABS: Basophils Percent Auto 0.6 % (0-2); Eosinophils Absolute Auto 0.1 X10*3/uL (0.0-0.4); Eosinophils Percent Auto 1.3 % (0-4); Hematocrit 39.4 % (37.0-47.0); Hemoglobin 13.8 g/dl (12.0-16.0); Imm Gran Abs Auto 0.01 X10*3/uL (0.00-0.03); Imm Gran Pct Auto 0.2 % (0.0-0.4); Lymphocytes Absolute Auto 2.1 X10*3/uL (1.2-4.9); Lymphocytes Percent Auto 38.5 % (20-40); Mean Corpuscular Hemoglobin 30.9 pg (27.0-33.0); Mean Corpuscular Volume 88.3 fL (80.0-98.0); Mean Platelet Volume 8.4 fL (9.4-12.3); Monocytes Absolute Auto 0.4 X10*3/uL (0.1-1.2); Monocytes Percent Auto 6.6 % (2-11); Neutrophils Absolute Auto 2.8 x10*3/uL (2.0-8.3); Neutrophils Percent Auto 52.8 % (45-73); Platelet Count 322 X10*3/uL (160-400); Red Blood Count 4.46 X10*6/uL (4.20-5.50); Red Cell Distribution Width 13.6 % (11.0-16.0); White Blood Count 5.3 X10*3/uL (4.8-10.8)
[2023-11-07 13:57] LABS: D Dimer High Sensitivity 190 NG/ML
[2023-11-07 14:00] VITALS: BP 143/88; PULSE 75; RESP 18; TEMP 37.5; O2SAT 98
[2023-11-07 14:05] LABS: Alanine Aminotransferase 17 U/L (0-31); Albumin Level 4.4 g/dL (3.5-5.0); Alkaline Phosphatase 52 U/L (39-117); Anion Gap 13 (12-20); Aspartate Amino Transferase 16 U/L (5-31); Bilirubin Total 1.2 mg/dL (0.0-1.0); Blood Urea Nitrogen 12 mg/dL (9-16); Calcium 10.1 mg/dL (8.4-10.2); Carbon Dioxide 27 mmol/L (22-29); Chloride 105 mmol/L (96-108); Creatinine Clr Calc Pharmacy 79.3; Estimated Glomerular Filt Rate > 60; Glucose Random 99 mg/dL (60-115); Sodium 141 mmol/L (135-145); Total Protein 7.2 g/dL (6.5-8.0)
[2023-11-07 14:13] LABS: Troponin-I High Sensitivity < 2.7 ng/L (<3.5-17.0)
[2023-11-07 14:32] LABS: Influenza A PCR NEGATIVE (Negative); Influenza B PCR NEGATIVE (Negative); Resp Syncy Virus RNA Qual PCR NEGATIVE (Negative); SARS COV2 PCR INHOUSE NEGATIVE (Negative)
[2023-11-07 16:23] VITALS: BP 130/98; PULSE 78; RESP 18; TEMP 36.7; O2SAT 99
[2023-11-07 16:27] VITALS: BP 130/98; PULSE 78; RESP 18; TEMP 36.7; O2SAT 99
== END 2023-11-07 16:39 | disposition home or self-care (01) ==
PROVIDERS: Registered Nurse Emergency; Emergency Provider Emergency Medicine Emergency Medical Services; PCP Internal Medicine
DX: J40 Bronchitis, not specified as acute or chronic (principal); R05.9 Cough, unspecified; F17.200 Nicotine dependence, unspecified, uncomplicated; I10 Essential (primary) hypertension; Z03.818 Encounter for observation for suspected exposure to other biological agents ruled out
CPT/HCPCS: 0241U; 36415; 71046; 80053; 84484; 85025; 85379; 99283; 99284

== ENCOUNTER 2023-12-10 14:19 | Outpatient (REF) | payer OTHER, SELFPAY | END 2023-12-10 14:20 | disposition home or self-care (01) | LOC: HO.LAB 14:19 | PROVIDERS: PCP Internal Medicine; Visit Provider Psychiatry & Neurology Neurology | DX: Z13.89 Encounter for screening for other disorder (principal) ==

== ENCOUNTER 2023-12-19 14:57 | Outpatient (AMB) | payer OTHER, SELFPAY ==
--- NOTE | 2023-12-19 15:51 | MHC.OFFWIV ---
Intake Vital Signs 12/19/23 15:55 Height 5 ft 4 in Weight 157 lb BMI 26.9 BP 140/100 H Blood Pressure Location Lt brachial Position Sitting Pulse 86 Pulse Source Pulse Oximeter Temp 98.7 F Temp Source Oral Pulse Oximetry (%) 98 Oxygen Delivery Method Room Air Intake Visit Reasons: EP Nausea, abdominal pain Intake Note: Patient here for nausea and abdominal pain that has been present for a couple of days. Patient Tobacco Use Status: Current someday Tobacco user Allergies atorvastatin Allergy (Verified 12/19/23 15:55) Weakness Do you need a note to return to daycare/school/sports/work: No HPI EP Nausea, abdominal pain HPI Details This note is constructed using voice recognition software. While every effort has been made to ensure accuracy, marketing intelligence analyst errors may have been included. The patient is a 53 year old female who presents to the clinic today with nausea and diarrhea for the past 2 days with abdominal cramps. He denies fever, chills, bright red blood per rectum. She has not tried anything to make it better. FOR[facility] Medical History (Updated 12/13/23 @ 16:14 by Starr Hollingsworth RN) Head injury Double vision Headache Anxiety UTI (urinary tract infection) Fatigue Weight gain HTN (hypertension) Constipation Lumbar pain Left sided abdominal pain Depression Chronic back pain Surgical History History of surgery on lower extremity Family History Sister Melanoma Maternal Grandfather Colon cancer Family/Other Hodgkin lymphoma Social History Alcohol intake: current Alcohol intake frequency: holidays/special occasions only Patient Tobacco Use Status: Current someday Tobacco user Review of Systems Const All systems reviewed & are unremarkable except as noted in HPI and below Physical Exam Vital Signs: Last Vital Signs Temp 98.7 F 12/19/23 15:55 Pulse 86 12/19/23 15:55 BP 140/100 H 12/19/23 15:55 Pulse Ox 98 12/19/23 15:55 Oxygen Delivery Method Room Air 12/19/23 15:55 BMI result Body Mass Index 26.9 Const General: cooperative, healthy appearing, comfortable, no acute distress and well developed Orientation/consciousness: patient oriented x3 Limitations: no limitations HEENT Head: Yes normal to inspection Neck Neck: Yes normal visual inspection Resp Effort & Inspection: normal respiratory effort and able to speak in complete sentences Auscultation: clear to auscultation bilaterally Cardio Jugular venous distension: no JVD Rate: regular rate Rhythm: regular rhythm Heart sounds: S1 normal heart sound present, S2 normal heart sound present and normal S1 and S2 GI Inspection: Yes normal to inspection Palpation (GI): Soft to palpation Percussion: Yes normal to percussion Auscultation: normal bowel sounds Skin General skin exam: no rashes or lesions noted Neuro General: patient oriented x3 Psych Appearance: grossly normal Attitude: cooperative Assessment & Plan Assessment & Plan (1) Gastroenteritis: Code(s): K52.9 - Noninfective gastroenteritis and colitis, unspecified Plan: Prescription for Zofran provided for symptomatic management. Advised patient to increase hydration. Advised gentle diet. Advised ER with sudden worsening of pain, fever, blood per rectum. Plan See above for full details and plan. Medications: New ondansetron 4 mg PO Q8H 3 days PRN 9 tabs 0RF nausea and vomiting Coding Level of Care Code Est Pt Level 3 (82275) Diagnoses Gastroenteritis K52.9
[2023-12-19 15:55] VITALS: BP 140/100; PULSE 86; TEMP 37.1; O2SAT 98; BMI 26.9
== END 2023-12-19 16:37 | disposition home or self-care (01) ==
PROVIDERS: PCP Internal Medicine; Visit Provider Registered Nurse
DX: K52.9 Noninfective gastroenteritis and colitis, unspecified (principal)

== ENCOUNTER → 2023-12-19 14:57 | Outpatient (BNVA) | payer OTHER, SELFPAY | PROVIDERS: PCP Internal Medicine | DX: K52.9 Noninfective gastroenteritis and colitis, unspecified (principal) | CPT/HCPCS: 99212 ==

== ENCOUNTER 2024-01-09 06:50 | Outpatient (REF) | payer OTHER, SELFPAY ==
[2024-01-09 14:20] LABS: Total Volume 24 Hour Urine 750 mL
[2024-01-09 14:22] LABS: Creatinine, 24Hr Urine 1.1 G/Day (1.0-2.0); Creatinine, mg/dL 152.99; Protein 24 Hr Urine < 53 mg/Day (<150); Protein mg/dL 7 mg/dL
== END 2024-01-09 06:51 | disposition home or self-care (01) ==
LOC: HO.HMGCLNP 06:50
PROVIDERS: Visit Provider Internal Medicine Nephrology
DX: I10 Essential (primary) hypertension (principal); R80.9 Proteinuria, unspecified; R31.29 Other microscopic hematuria
CPT/HCPCS: 84156

== ENCOUNTER 2024-11-03 11:56 | Outpatient (AMB) | payer OTHER, SELFPAY ==
[2024-11-03 12:21] VITALS: BP 132/80; PULSE 93; TEMP 36.8; O2SAT 98; BMI 29.9
--- NOTE | 2024-11-03 12:21 | AM.OFFWIN_ITS ---
Intake Vital Signs 3 11/03/24 12:21 Height 5 ft 4 in Weight 174 lb BMI 29.9 BP 132/80 Blood Pressure Location Lt brachial Position Sitting Pulse 93 Pulse Source Pulse Oximeter Temp 98.3 F Temp Source Oral Pulse Oximetry (%) 98 Oxygen Delivery Method Room Air Intake Visit Reasons: EP-b/l ears infection Intake Note: pt is here for bilateral ear infection, 1x month Patient Tobacco Use Status: Current someday Tobacco user Allergies atorvastatin Allergy (Verified 11/03/24 12:23) Weakness Do you need a note to return to daycare/school/sports/work: No HPI HPI Comments 2 History of Present Illness0 Details 54 y/o Female patient who presents to [facility] in clinic with c/o ?B/L Ear infections. Reports for the Past 1 month, her Ears have been draining Dark/yellowish liquid. Denies Pain, Tinnitus or Hearing changes. Denies Injury or TRauma. Denies any URI symptoms. She has been scratching Ears and inserting Cotton wool frequently. [facility] Medical History (Updated 11/03/24 @ 13:01 by Vandana Martinez NP) Fluid level behind tympanic membrane of both ears Head injury Double vision Headache Anxiety UTI (urinary tract infection) Fatigue Weight gain HTN (hypertension) Constipation Lumbar pain Left sided abdominal pain Depression Chronic back pain Surgical History History of surgery on lower extremity Family History Sister Melanoma Maternal Grandfather Colon cancer Family/Other Hodgkin lymphoma Social History Alcohol intake: current Alcohol intake frequency: holidays/special occasions only Patient Tobacco Use Status: Current someday Tobacco user Review of Systems Const All systems reviewed & are unremarkable except as noted in HPI and below Physical Exam Vital Signs: Last Vital Signs Temp 98.3 F 11/03/24 12:21 Pulse 93 11/03/24 12:21 BP 132/80 11/03/24 12:21 Pulse Ox 98 11/03/24 12:21 Oxygen Delivery Method Room Air 11/03/24 12:21 BMI result Body Mass Index 29.9 Const General: no acute distress Nutritional Appearance: well nourished Orientation/consciousness: patient oriented x3 HEENT Head: Yes normocephalic Ears: hearing grossly normal bilaterally and TM's normal bilaterally Outer ear/TM images: 2 1. Skin Irritation redness and dry skin. General nose exam: Normal nasal mucous membranes and turbinates present Face and sinus: Yes sinuses nontender Mouth: moist mucous membranes Throat: Yes uvula midline Resp Effort & Inspection: normal respiratory effort Auscultation: clear to auscultation bilaterally Cardio Heart sounds: S1 normal heart sound present and S2 normal heart sound present Neuro General: patient oriented x3, gait normal and moves all extremities Psych Speech and movement: Normal speech and movement present Assessment & Plan Assessment & Plan (1) Fluid level behind tympanic membrane of both ears: Code(s): H65.93 - Unspecified nonsuppurative otitis media, bilateral Plan: B/L TMs Intact, clean, no wax no infection. Mild Skin irritation right external Ear. No pain, no tenderness. Advised to continue monitoring Symptoms. Coding Level of Care Code Est Pt Level 4 (59114) Diagnoses Fluid level behind tympanic membrane of both ears H65.93 Time Spent (min) 20
--- OUTSIDE RECORDS SUMMARY | 2024-11-03 14:30 | XMS_ITS | Encounter Summary ---
Author Organization [facility] Address [address] [place] [address] Care Team Providers Care Rotary Cutter Operator Name Role Phone Elliott Metz MD Primary Care Provider Encounter Details Date Type Department Care Team Description 08/16/2023 Licensed Practical Nurse Instructor Report Medical Records [address] [place] [id number] Abstract, Provider Social History Tobacco Use Types Packs/Day Years Used Date Smoking Tobacco: Former Cigarettes Passive Smoke Exposure: Past Smokeless Tobacco: Never Comments:Quit cigarettes t summer Alcohol Use Standard Drinks/Week Comments Yes 0 (1 standard drink = 0.6 oz pur e alcohol) rare Sex Assigned at Date Recorded Not on file Job Start Date Occupation Industry Not on file Not on file Not on file documented as of this encounter Plan of Treatment Not on file documented as of this encounter Visit Diagnoses Not on filedocumented in this encounter Care Teams Rotary Cutter Operator Relationship Specialty Start Date End Date Elliott Metz MD [address] [place], [place] [phone] PCP - General Internal Medicine 07/07/22 documented as of this encounter
--- OUTSIDE RECORDS SUMMARY | 2024-11-03 14:30 | XMS_ITS | Encounter Summary ---
Author Organization [facility] Address [address] [place] [address] Care Team Providers Care Materials Scheduler Name Role Phone Elliott Metz MD Primary Care Provider Encounter Details Date Type Department Care Team Description 10/25/2023 Orders Only Medical Records [address] [place] [id number] Aleksandar Sanchez Social History Tobacco Use Types Packs/Day Years Used Date Smoking Tobacco: Former Cigarettes Passive Smoke Exposure: Past Smokeless Tobacco: Never Comments:Quit cigarettes las t summer Alcohol Use Standard Drinks/Week Comments Yes 0 (1 standard drink = 0.6 oz pur e alcohol) rare Sex Assigned at Date Recorded Not on file Job Start Date Occupation Industry Not on file Not on file Not on file documented as of this encounter Plan of Treatment Not on file documented as of this encounter Procedures Procedure Name Priority Date/Time Associated Diagnosis Comments OUTSIDE LAB Routine 10/10/2023 documented in this encounter Results * OUTSIDE LAB (10/10/2023) Aleksandar KNIGHT documented in this encounter Visit Diagnoses Not on filedocumented in this encounter Care Teams Materials Scheduler Relationship Specialty Start Date End Date Elliott Metz MD [address] [place] [phone] PCP - General Internal Medicine 07/07/22 documented as of this encounter
--- OUTSIDE RECORDS SUMMARY | 2024-11-03 14:30 | XMS_ITS | Clinical Summary ---
Author Organization [facility] Address [address] [place] [address] Phone Care Team Providers Care Health Facilities Surveyor Name Role Phone Elliott Metz MD Primary Care Provider Allergies Active Allergy Reactions Criticality Noted Date Comments Atorvastatin Weakness 11/01/2023 Medications CHOLECALCIFEROL , VITAMIN D3, ORAL Take by mouth. Active LORazepam (ATIVAN) 1 mg tablet Take 1 tablet (1 mg total) by mouth. 09/27/2023 Active olmesartan (BENICAR) 5 mg tablet Take 1 tablet (5 mg total) by mouth 1 (one) time each day. 11/19/2023 Active zinc gluconate 30 mg tablet Take 1 tablet (30 mg total) by mouth. Active VITAMIN D3-VITAMIN K2, MK4, ORAL Take by mouth. Active omega-3 fatty acids/fish oil (OMEGA 3 FISH OIL ORAL) Take by mouth. Active coenzyme Q-10 10 mg capsule Take by mouth. Active CYANOCOBALAMIN, VITAMIN B-12, ORAL Take by mouth. Active magnesium glycinate 100 mg magnesium capsule Take 200 mg (2 capsules total) by mouth. 11/01/2023 Active vitamin K2, MK-4, 100 mcg tablet Take by mouth. Active multivitamin (MULTIPLE VITAMINS ORAL) Take by mouth. Active soybean, fermented (Nattokinase) 50 mg capsule Take by mouth. Active Active Problems Problem Noted Date Diagnosed Date Fibromyalgia 11/01/2023 Other hyperlipidemia 11/01/2023 Generalized anxiety disorder 09/27/2023 Fibroid uterus 08/10/2023 Overview (12/24/2023): Asymptomatic. Two on US in 2022, [address] about same size in 2023 Other chronic pain 04/10/2023 Fatigue 04/10/2023 Overview (12/24/2023): Last Assessment & Plan: I counseled Debbi that her symptoms may all be worsening as a result of menopause. However, unfortunately, there is no testing to do that would direct treatment from a hormonal standpoint. Once in menopause, we know that her FSH is high and her estradiol is low. HRT is indicated for treatment of vasomotor symptoms and vaginal dryness. Given that these are not significant on her list of complaints, I recommend that she see her PCP to discuss usual treatments for her symptoms. She agreed. Depression 04/10/2023 Weight gain 04/10/2023 Overview (12/24/2023): Last Assessment & Plan: We discussed diet and exercise. Specifically weight bearing exercise to improve metabolism. Primary hypertension 07/28/2022 Encounters Date Type Department Care Team Description 08/08/2024 1:49 PM EDT - 08/08/2024 11:59 PM EDT Hospital Encounter Radiology Department - [address] [phone] Breast pain Discharge Disposition: Home or Self Care 08/08/2024 1:49 PM EDT - 08/08/2024 11:59 PM EDT Hospital Encounter Radiology Department - [address] [phone] Mastalgia Discharge Disposition: Home or Self Care from Last 3 Months Surgical History Surgery Date Site/Laterality Comments LEG SURGERY PROCEDURE: HISTORICAL LEG SURGERY; COMMENT: left leg ORIF Medical History Medical History Date Comments DUB (dysfunctional uterine bleeding) DX:DUB (dysfunctional uterine bleeding) Family History Medical History Relation Name Comments Other: DCIS Aunt maternal aunt Breast cancer, maternal aunt Colon cancer Maternal Grandfather Other: hodgkins lymphoma Other nep hew 8 Melanoma Sister age 20 Ovarian cancer Neg Hx Pancreatic cancer Neg Hx Prostate cancer Neg Hx Uterine cancer Neg Hx Relation Name Status Comments Aunt maternal aunt Maternal Grandfather Other Sister Social History Tobacco Use Types Packs/Day Years Used Date Smoking Tobacco: Former Smokeless Tobacco: Never Tobacco Cessation:Counseling Given: Not Answered Alcohol Use Standard Drinks/Week Comments Yes 0 (1 standard drink = 0.6 oz pur e alcohol) Housing Instability Answer Date Recorde d Are you worried that in the next 2 months you may not have stable housing? No 07/28/2024 Food Access & Nutrition Answer Date Rec orded Do you have access to a vari ety of food including fruits and vegetables? Yes 07/28/2024 Access to Healthcare Answer Date Record ed Within the last 3 months, ho w many times did you visit the emergency department for your medical care? 0 07/28/2024 Health Literacy Answer Date Recorded How often do you need to hav e someone help you when you read instructions, pamphlets, or other written material from your doctor or pharmacy? Rarely 07/28/2024 Caregiver: How often do you need to have someone help you when you read instructions, pamphlets, or other written material from your doctor or pharmacy? Not on file 07/28/2024 Financial Risk Answer Date Recorded How hard is it for you to pa y for the very basics like food, housing, medical care, and air conditioning / heating? Hard 07/28/2024 Transportation Answer Date Recorded Has the lack of transportati on kept you from meetings, work, or from getting things needed for daily living? No Has the lack of transportati on kept you from medical appointments or from getting medications? No 07/28/2024 Social Isolation Answer Date Recorded How often do you feel lonely or isolated from th ose around you? Rarely 07/28/2024 Food Risk Answer Date Recorded Within the past 12 months we worried whether our food would run out before we got money to buy more. Never true 025 Within the past 12 months th e food we bought just didn't last and we didn't have money to get more. Sometimes true 07/28/2024 Dependent Care Answer Date Recorded Do you need help finding or paying for care for your loved ones. For example, child & adolescent psychiatrist or elderly care for an older adult? Patient declined 07/28/2024 Education Answer Date Recorded Do you think completing more education or training, like finishing a GED, going to college, or learning a trade, would be helpful for you? N/A 07/28/2024 Employment and Income Answer Date Recor ded During the last four weeks, have you been actively looking for work? Patient declined 07/28/2024 Living Situation Answer Date Recorded What is your living situation? 0 07/28/2024 Comments No Sex and Gender Information Value Date Recorded Sex Assigned at Not on file Legal Sex Female 6:12 PM EST Gender Identity Not on file Sexual Orientation Not on file Obstetrics History * This document contains information received from the source organization and may not represent a complete record from that organization. Para Term AB IAB SAB Ectopic Multiple Livin g Live Births 2 0 0 0 Date Outcome GA Total Labor Labor/2nd/3rd Weight Sex Type Anes PTL Sayda A1 A5 Name Clin Last Filed Vital Signs Vital Sign Reading Time Taken Comments Blood Pressure 120/82 07/29/2024 10:09 AM EDT Pulse 69 07/29/2024 10:09 AM EDT Temperature 36.6 C (97.9 F) 06/23/2024 9:29 AM EDT Respiratory Rate 16 06/23/2024 9:29 AM EDT Oxygen Saturation - - Inhaled Oxygen Concentration - - Weight 82.6 kg (182 lb) 07/29/2024 10:09 AM EDT Height 162.6 cm (5' 4 ) 06/23/2024 9:29 AM EDT Body Mass Index 31.24 06/23/2024 9:29 AM EDT Plan of Treatment Upcoming Encounters Date Type Department Care Team (Late st Contact Info) Description 08/10/2025 11:00 AM EDT Appointment Radiology Department - [address] [phone] Health Maintenance Due Date Last Done Comments DTaP,Tdap,and Td Vaccines (1 - Tdap) 06/18/1990 Hepatitis B Vaccines (1 of 3 - 19+ 3-dose series) 06/18/1990 Cervical Cancer Screening: HPV 06/18/1992 Pneumococcal Vaccine: 50+ Years (1 of 1 - PCV) 06/18/2021 Zoster Vaccines (1 of 2) 06/18/2021 HIV Screening 01/28/2022 COVID-19 Vaccine ( season) 2024 Influenza Vaccine (#1) 2024 Hypertension/CHF/CAD Annual BMP Blood Test 06/23/2025 06/23/2024, 12/20/2023, 12/20/2023 Social Influencers of Health Screening 07/28/2025 07/28/2024 Breast Cancer Screening 08/08/2026 08/09/19, 02/16/2023, 04/22/2018, Additional history exists Cholesterol Screening (Lipid Panel) 09/05/2028 09/06/2023 Colorectal Cancer Screening: Colonoscopy 09/16/2033 09/17/2023 Hepatitis C Screening Addressed 07/28/2022 Overri dden with the intention of not completing the topic Depression Screening Completed 07/22/2024 HIB Vaccines Aged Out No longer eligi ble based on patient's age to complete this topic HPV Vaccines Aged Out No longer eligi ble based on patient's age to complete this topic Hepatitis A Vaccines Aged Out No long er eligible based on patient's age to complete this topic IPV Vaccines Aged Out No longer eligi ble based on patient's age to complete this topic MMR Vaccines Aged Out No longer eligi ble based on patient's age to complete this topic Meningococcal ACWY Vaccine Aged Out N o longer eligible based on patient's age to complete this topic Meningococcal B Vaccine Aged Out No l onger eligible based on patient's age to complete this topic RSV Immunization Patients Under 20 months Aged Out No longer eligible based on patient's age to complete this topic Varicella Vaccines Aged Out No longer eligible based on patient's age to complete this topic Procedures Procedure Name Priority Date/Time Associated Diagnosis Comments US BREAST LIMITED LEFT Routine 08/08/2024 2:12 PM EDT Breast pain MG MAMMO DIGITAL DIAGNOSTIC W JIMBO BILAT Routine 08/08/2024 2:09 PM EDT Mastalgia COMPREHENSIVE METABOLIC PANEL Routine 06/23/2024 10:19 AM EDT Primary hypertension from Last 3 Months or Most Recently Relevant to Health Maintenance Results * US Breast Limited Left (08/08/2024 2:12 PM EDT) Anatomical Region Laterality Modality Breast Left Ultrasound 08/08/2024 2:12 PM EDT Impressions 08/08/2024 2:23 PM EDT RIGHT BREAST: Negative, no evidence of malignancy. Normal interval follow-up is recommended in 12 months. LEFT BREAST: Negative, no evidence of malignancy. Clinical follow-up is recommended for the clinical concern of the pain. Otherwise, normal interval follow-up mammogram is recommended in 12 months. Findings and recommendations were discussed with the patient at the completion of the studies. BREAST DENSITY: B - There are scattered areas of fibroglandular density. BI-RADS CATEGORY: 1 - NEGATIVE RECOMMENDATION: Mammography: Screening right mammogram is recommended in 1 year. Clinical management of left breast is recommended. Ultrasound: Clinical management of left breast is recommended. Mammo Location: [facility], [address] [place] [address], [id number], . -------- FINAL REPORT -------- Dictated By: Rico Cruz Dictated Date: 08/08/2024 14:12 ET Assigned Physician: Rico Cruz Reviewed and Electronically Signed By: Rico Cruz Signed Date: 08/08/2024 14:23 ET Workstation ID: [id number] Transcribed By: Self Edit Transcribed Date: 08/08/2024 14:14 ET Narrative 08/08/2024 2:23 PM EDT HISTORY: Left breast pain. According to the patient, the pain was located along the 3:00-9:00 axis, but now has been almost resolved. STUDIES: 1. Bilateral diagnostic mammography with tomosynthesis and CAD 2. Targeted ultrasound of the left breast TECHNIQUE: Bilateral digital diagnostic mammography is obtained and read in conjunction with computer-aided detection. Tomosynthesis as well as 2-D C view imaging were obtained. COMPARISON: Comparison made to multiple prior, most recent February 16, 2023, and most remote October 18, 2011. RIGHT BREAST: No significant masses, suspicious calcifications or other abnormalities are seen. LEFT BREAST: No significant masses, suspicious calcifications or other abnormalities are seen. Targeted ultrasound of the left breast was performed at the location of the pain as indicated by the patient along the 3:00 and 9:00 axis. The survey did not reveal suspicious sonographic findings. Only normal breast tissue seen. us Patience Clarke AURELIO IMG US PROCEDURES Final Result * MG Mammo Digital Diagnostic w Jimbo bilat (08/08/2024 2:09 PM EDT) Anatomical Region Laterality Modality Breast Bilateral Mammography 08/08/2024 2:12 PM EDT Impressions 08/08/2024 2:23 PM EDT RIGHT BREAST: Negative, no evidence of malignancy. Normal interval follow-up is recommended in 12 months. LEFT BREAST: Negative, no evidence of malignancy. Clinical follow-up is recommended for the clinical concern of the pain. Otherwise, normal interval follow-up mammogram is recommended in 12 months. Findings and recommendations were discussed with the patient at the completion of the studies. BREAST DENSITY: B - There are scattered areas of fibroglandular density. BI-RADS CATEGORY: 1 - NEGATIVE RECOMMENDATION: Mammography: Screening right mammogram is recommended in 1 year. Clinical management of left breast is recommended. Ultrasound: Clinical management of left breast is recommended. Mammo Location: [facility], [address] [place] [address], [id number], . -------- FINAL REPORT -------- Dictated By: Rico Curz Dictated Date: 08/08/2024 14:12 ET Assigned Physician: Rico Cruz Reviewed and Electronically Signed By: Rico Cruz Signed Date: 08/08/2024 14:23 ET Workstation ID: [id number] Transcribed By: Self Edit Transcribed Date: 08/08/2024 14:14 ET Narrative 08/08/2024 2:23 PM EDT HISTORY: Left breast pain. According to the patient, the pain was located along the 3:00-9:00 axis, but now has been almost resolved. STUDIES: 1. Bilateral diagnostic mammography with tomosynthesis and CAD 2. Targeted ultrasound of the left breast TECHNIQUE: Bilateral digital diagnostic mammography is obtained and read in conjunction with computer-aided detection. Tomosynthesis as well as 2-D C view imaging were obtained. COMPARISON: Comparison made to multiple prior, most recent February 16, 2023, and most remote October 18, 2011. RIGHT BREAST: No significant masses, suspicious calcifications or other abnormalities are seen. LEFT BREAST: No significant masses, suspicious calcifications or other abnormalities are seen. Targeted ultrasound of the left breast was performed at the location of the pain as indicated by the patient along the 3:00 and 9:00 axis. The survey did not reveal suspicious sonographic findings. Only normal breast tissue seen. Patience Clarke CNM IMG BI PROCEDURES Final Result * Comprehensive metabolic panel (06/23/2024 10:19 AM EDT) Sodium 136 133 - 145 mmol/L LAB CHEMISTRY METHOD 06/23/2024 4:10 PM [facility] Potassium 4.5 3.5 - 5.5 mmol/L LAB CHEMISTRY METHOD 06/23/2024 4:10 PM [facility] Chloride 102 96 - 110 mmol/L LAB CHEMISTRY METHOD 06/23/2024 4:10 PM [facility] CO2 28 21 - 32 mmol/L LAB CHEMISTRY METHOD 06/23/2024 4:10 PM [facility] Anion Gap 6 3 - 11 LAB CHEMISTRY METHOD 06/23/2024 4:10 PM [facility] Glucose 97 70 - 100 mg/dL LAB CHEMISTRY METHOD 06/23/2024 4:10 PM [facility] BUN 17 5 - 25 mg/dL LAB CHEMISTRY METHOD 06/23/2024 4:10 PM [facility] Creatinine 0.77 0.50 - 1.10 mg/dL LAB CHEMISTRY METHOD 06/23/2024 4:10 PM [facility] eGFR 92 >=60 mL/min/1. 73m2 LAB CHEMISTRY METHOD 06/23/2024 4:10 PM T [facility] Comment:Calculation based on the Chronic Kidney Disease Epidemiology Collaboration (CKD-EPI) equation refit without adjustment for race. BUN/Creatinine Ratio 22.1 LAB CHEMISTRY METHOD 06/23/2024 4:10 PM EDT [facility] Calcium 10.1 8.5 - 10.5 mg/dL LAB CHEMISTRY METHOD 06/23/2024 4:10 PM T [facility] AST (SGOT) 26 10 - 42 unit/L LAB CHEMISTRY METHOD 06/23/2024 4:10 PM [facility] ALT (SGPT) 27 10 - 60 unit/L LAB CHEMISTRY METHOD 06/23/2024 4:10 PM [facility] Alkaline Phosphatase 98 42 - 121 unit/L LAB CHEMISTRY METHOD 06/23/2024 4:10 PM [facility] Total Protein 7.7 6.0 - 8.0 g/dL LAB CHEMISTRY METHOD 06/23/2024 4:10 PM [facility] Albumin 4.3 3.2 - 5.0 g/dL LAB CHEMISTRY METHOD 06/23/2024 4:10 PM [facility] Total Bilirubin 0.9 0.0 - 1.4 mg/dL LAB CHEMISTRY METHOD 06/23/2024 4:10 PM [facility] Blood Venous blood specimen / Unknown Venipuncture / Unknown 06/23/2024 10:19 AM EDT 06/23/2024 10:19 AM EDT us Elliott Metz MD LAB BLOOD ORDERABLES F inal Result [facility] [address] [place] [address], [place] [phone] from Last 3 Months or Most Recently Relevant to Health Maintenance Insurance [facility] [email or web address] PLANS [place] [id number] Care Teams Health Facilities Surveyor Relationship Specialty Start Date End Date Elliott Metz MD [address] [place] [address] PCP - General 07/07/22
--- OUTSIDE RECORDS SUMMARY | 2024-11-03 14:30 | XMS_ITS | Encounter Summary ---
Author Organization [facility] Address [address] [place] [address] Care Team Providers Care Leather Production Machine Operator Name Role Phone Elliott Metz MD Primary Care Provider Encounter Details Date Type Department Care Team Description 10/09/2023 Pt. Non Urgent Medical Question Adult Medicine [address] [address] Landon Salvador PA-C [address] [place] [phone] Social History Tobacco Use Types Packs/Day Years Used Date Smoking Tobacco: Former Cigarettes Passive Smoke Exposure: Past Smokeless Tobacco: Never Comments:Quit cigarettes summer Alcohol Use Standard Drinks/Week Comments Yes 0 (1 standard drink = 0.6 oz pur e alcohol) rare Sex Assigned at Date Recorded Not on file Job Start Date Occupation Industry Not on file Not on file Not on file documented as of this encounter Miscellaneous Notes * Telephone Encounter - Julienne Alvarado L.P.N. - 10/09/2023 11:11 AM EDTFrom: Jeff Saha To: Clementine Salvador Sent: 10/09/2023 11:06 AM EDT Subject: Appt inquiry I have an appt with you on the 15 of October. Can you tell me what this is for? documented in this encounter Plan of Treatment Not on file documented as of this encounter Visit Diagnoses Not on filedocumented in this encounter Care Teams Leather Production Machine Operator Relationship Specialty Start Date End Date Elliott Metz MD [address] [place] [id number] PCP - General Internal Medicine 07/07/22 documented as of this encounter
--- OUTSIDE RECORDS SUMMARY | 2024-11-03 14:30 | XMS_ITS | Encounter Summary ---
Author Organization [facility] Address [address] [place] [address] Care Team Providers Care Radiographic Technologist Name Role Phone Elliott Metz MD Primary Care Provider Encounter Details Date Type Department Care Team Description 09/19/2023 Orders Only Medical Records [address] [place] [address] Nate Silverman DO [address] [facility] [address] [facility] [place] [address] Social History Tobacco Use Types Packs/Day Years [...] Name Priority Date/Time Associated Diagnosis Comments OUTSIDE COLONOSCOPY Routine 09/17/2023 documented in this encounter Results * OUTSIDE COLONOSCOPY (09/17/2023) Nate Silverman DO RADIOLOGY documented in this encounter Visit Diagnoses Not on filedocumented in this encounter Care Teams Radiographic Technologist Relationship Specialty Start Date End Date Elliott Metz MD [address] [place] [address] PCP - General Internal Medicine 07/07/22 documented as of this encounter
--- OUTSIDE RECORDS SUMMARY | 2024-11-03 14:30 | XMS_ITS | Encounter Summary ---
Author Organization [facility] Address [address] [place] [address] Care Team Providers Care Senior Client Advisor Name Role Phone Murphy Whiteside Primary Care Provider Elliott Adams MD Primary Care Provider Encounter Details Date Type Department Care Team Description 03/20/2017 Pt. Non Urgent Medical Question OBGYN - [address] [address] Jeanne Burleson DO Social History Tobacco Use Types Packs/Day Years Used Date Smoking Tobacco: Former Smokeless Tobacco: Never Alcohol Use Standard Drinks/Week Comments Yes 0 (1 standard drink = 0.6 oz pur e alcohol) rare Sex Assigned at Date Recorded Not on file Job Start Date Occupation Industry Not on file Not on file Not on file documented as of this encounter Progress Notes * Vandana Peña R.N. - 03/20/2017 3:39 PM ESTFrom: Jeff Saha To: Jeanne Burleson DO Sent: 03/20/2017 3:37 PM EST Subject: Ultrasound Can I get a copy of my ultrasounds sent to my email address? I don't see the images on MyChart. Thank you Jeff Saha documented in this encounter Plan of Treatment Not on file documented as of this encounter Visit Diagnoses Not on filedocumented in this encounter Care Teams Senior Client Advisor Relationship Specialty Start Date End Date Murphy Whiteside PCP - General 12/01/05 07/06/22 Elliott Metz MD [address] [place] [id number] PCP - General Internal Medicine 07/07/22 documented as of this encounter
--- OUTSIDE RECORDS SUMMARY | 2024-11-03 14:30 | XMS_ITS | Encounter Summary ---
Author Organization [facility] Address [address] [place] [address] Care Team Providers Care Bulk Loader Name Role Phone Elliott Metz MD Primary Care Provider Encounter Details Date Type Department Care Team Description 08/07/2022 Transfer Records Medical Records [address] [place] [address] [facility], [address] [address] Social History Tobacco Use Types Packs/Day Years Used Date Smoking Tobacco: Some Days Cigarettes Smokeless Tobacco: Never Comments:Summer 2021 Alcohol Use Standard Drinks/Week Comments Yes 0 (1 standard drink = 0.6 oz pur e alcohol) rare Sex Assigned at Date Recorded Not on file Job Start Date Occupation Industry Not on file Not on file Not on file COVID-19 Exposure Response Date Recorded In the last 10 days, have yo u been in contact with someone who was confirmed or suspected to have Coronavirus/COVID-19? No / Unsure 08/04/2022 11:31 AM EDT documented as of this encounter Plan of Treatment Not on file documented as of this encounter Visit Diagnoses Not on filedocumented in this encounter Care Teams Bulk Loader Relationship Specialty Start Date End Date Elliott Metz MD [address] [place], [place] [phone] PCP - General Internal Medicine 07/07/22 documented as of this encounter
--- OUTSIDE RECORDS SUMMARY | 2024-11-03 14:30 | XMS_ITS | Encounter Summary ---
Author Organization [facility] Address [address] [place] [address] Care Team Providers Care Molder Labels Name Role Phone Elliott Metz MD Primary Care Provider Encounter Details Date Type Department Care Team Description 11/30/2023 Pt. Non Urgent Medical Question Adult Medicine [address] [address] Elliott Metz MD [address] [place] [id number] Social History Tobacco Use Types Packs/Day Years [...] Telephone Encounter - Julienne Alvarado L.P.N. - 11/30/2023 11:05 AM EDTFrom: Jeff Saha To: Christine Metz Sent: 11/30/2023 10:25 AM EDT Subject: SundayDecember 02 I don't recall what this appointment is for. I forgot to add it to my calendar... can you remind meplease? documented in this encounter Plan of Treatment Not on file documented as of this encounter Visit Diagnoses Not on filedocumented in this encounter Care Teams Molder Labels Relationship Specialty Start Date End Date Elliott Metz MD [address] [place] [id number] PCP - General Internal Medicine 07/07/22 documented as of this encounter
--- OUTSIDE RECORDS SUMMARY | 2024-11-03 14:30 | XMS_ITS | Encounter Summary ---
Author Organization [facility] Address [address] [place] [address] Care Team Providers Care Child Protective Investigator Name Role Phone Elliott Metz MD Primary Care Provider Encounter Details Date Type Department Care Team Description 12/20/2023 Telephone Gastroenterology - [place] [address] [facility] [address] [place] [id number] Hai Boggs PA-C Social History Tobacco Use Types Packs/Day Years [...] encounter Miscellaneous Notes * Telephone Encounter - Asya Hopkins - 12/21/2023 11:31 AM EDT There is no report of endoscopy in [facility] or [facility] records. Spoke to patient who will try to locate those records for us as she is certain she had it done at [facility]. * Telephone Encounter - Hai Boggs PA-C - 12/20/2023 4:45 PM EDT Patient states that she has had an endoscopy at [facility] in the past. Please obtain results of sara mcclure found. Thank you documented in this encounter Plan of Treatment Not on file documented as of this encounter Visit Diagnoses Not on filedocumented in this encounter Care Teams Child Protective Investigator Relationship Specialty Start Date End Date Elliott Metz MD [address] [place] [id number] PCP - General Internal Medicine 07/07/22 documented as of this encounter
--- OUTSIDE RECORDS SUMMARY | 2024-11-03 14:30 | XMS_ITS | Clinical Summary ---
Author Organization [facility] Address [address] [place] [address] Care Team Providers Care Degreasing Wheel Operator Name Role Phone Elliott Metz MD Primary Care Provider Allergies Active Allergy Reactions Severity Noted Date Comments Atorvastatin Muscle weakness 11/01/2023 Medications Medication Sig Dispensed Refills Start Date End Date Status aspirin 81 MG EC tablet Take 1 Tablet by mouth daily. 0 Active Cyanocobalamin (VITAMIN B12 OR) Take by mouth. 0 Acti ve lorazepam (ATIVAN) 1 MG tablet Take 1 Tablet by mouth every 8 hours as needed for Anxiety for up to 30 days. 90 Tablet 0 09/27/2023 Active Coenzyme Q10 (CO Q 10 OR) Take by mouth. 0 Active Cholecalciferol (VITAMIN D3 OR) Take by mouth. 0 Activ e Menatetrenone (Vitamin K2) 100 MCG Tab Take by mouth. 0 Activ e Multiple Vitamins-Minerals (ZINC OR) Take by mouth. 0 Active Magnesium Glycinate 100 MG Cap Take 200 mg by mouth daily. 30 Capsule 0 11/01/2023 Active olmesartan (BENICAR) 5 MG tablet Take 1 Tablet by mouth daily. 90 Tablet 1 11/19/2023 Active ondansetron (ZOFRAN-ODT) 4 MG disintegrating tablet 0 12/19/2023 Act tigist esomeprazole (NexIUM) 40 MG capsule Take 1 Capsule by mouth every morning (before breakfast). Take in am on empty stomach., wait 30 mins and then eat to activate the medication. 30 Capsule 11 12/20/2023 Active Active Problems Problem Noted Date Fibromyalgia 11/01/2023 Other hyperlipidemia 11/01/2023 Generalized anxiety disorder 09/27/2023 Fibroid uterus 08/10/2023 Overview: Asymptomatic. Two on US in 2022, [address] about same size in 2023 Fatigue 04/10/2023 Last Assessment & Plan: I counseled Jeff that her symptoms may all be worsening [...] usual treatments for her symptoms. She agreed. Other chronic pain 04/10/2023 Depression 04/10/2023 Weight gain 04/10/2023 Last Assessment & Plan: We discussed diet and exercise. Specifically weight bearing exercise to improve metabolism. Family history of melanoma 08/04/2022 Last Assessment & Plan: Referred to Derm for skin check Primary hypertension 07/28/2022 Resolved Problems Problem Noted Date Resolved Date NO ACTIVE MEDICAL PROBLEMS 11/13/201107/28 Family History Medical History Relation Name Comments DCIS Aunt maternal aunt CA Colon Maternal Grandfather hodgkins lymphoma Other nephew 8 Melanoma Sister age 20 CA Ovarian Negative Hx Cancer of the Pancreas Negative Hx Cancer of the Prostate Negative Hx Uterine Cancer Negative Hx Relation Name Status Comments Aunt Maternal Grandfather Other Sister Social History Tobacco Use Types Packs/Day Years Used Date Smoking Tobacco: Former Cigarettes Passive Smoke Exposure: Past Smokeless Tobacco: Never Tobacco Cessation:Counseling Given: Not Answered Comments:Quit cigarettes last summer Alcohol Use Standard Drinks/Week Comments Yes 0 (1 standard drink = 0.6 oz pur e alcohol) rare Sex Assigned at Date Recorded Not on file Job Start Date Occupation Industry Not on file Not on file Not on file Last Filed Vital Signs Vital Sign Reading Time Taken Comments Blood Pressure 116/79 12/20/2023 3:00 PM EDT Pulse 72 12/20/2023 3:00 PM EDT Temperature 36.2 C (97.2 F) 12/20/2023 3:00 PM EDT Respiratory Rate 16 12/20/2023 3:00 PM EDT Oxygen Saturation 97% 12/20/2023 1:00 PM EDT Inhaled Oxygen Concentration - - Weight 71.4 kg (157 lb 6.4 oz) 12/20/2023 3:00 P M EDT Height 162.6 cm (5' 4 ) 12/20/2023 3:00 PM EDT Body Mass Index 27.02 12/20/2023 3:00 PM EDT Plan of Treatment Health Maintenance Due Date Last Done Comments Covid-19 Vaccine (#1) 1971 DTAP/TDAP/TD (1 - Tdap) 06/18/1990 SHINGLES VACCINE (1 of 2) 06/18/2021 MAMMOGRAM 02/17/2024 02/16/2023, 03/30, 04/09/2017, Additional history exists BMI CHECK/ADVISE 02/27/2024 11/22/2023, , 09/13/2023, Additional history exists INFLUENZA (#1) 2024 BASELINE HEALTH EXAM 40-64 09/05/202509/05, 05/02/2023, 04/25/2023, Additional history exists CERVICAL CANCER SCREENING 08/05/20272022, 11/13/2011, 09/27/2010 CHOLESTEROL SCREENING 09/05/2028 09/06/2023 , 04/17/2023, 07/28/2022 COLON CANCER SCREENING 09/16/2033 09/17/2023 PNEUMOCOCCAL VACCINE FOR HIG H RISK PATIENTS (#1) 06/18/2036 HEPATITIS C SCREENING Completed 07/28/2022 Care Teams Degreasing Wheel Operator Relationship Specialty Start Date End Date Elliott Metz MD [address] [place] [phone] PCP - General Internal Medicine 07/07/22
== END 2024-11-03 13:18 | disposition home or self-care (01) ==
PROVIDERS: PCP Internal Medicine; Visit Provider Nurse Practitioner Family
DX: H65.93 Unspecified nonsuppurative otitis media, bilateral (principal)

== ENCOUNTER → 2024-11-03 11:56 | Outpatient (BNVA) | payer OTHER, SELFPAY | PROVIDERS: PCP Internal Medicine; Visit Provider Nurse Practitioner Family | DX: H65.93 Unspecified nonsuppurative otitis media, bilateral (principal) | CPT/HCPCS: 99212 ==